=== PATIENT | female | born 1950 | race Caucasian/White ===

== ENCOUNTER → 2017-02-27 | Outpatient (CLI) | payer MEDICARE ==
--- NOTE | 2017-02-28 10:26 | MM ---
Reason for exam: screening (asymptomatic). Last mammogram was performed 2 years and 6 months ago. History: Patient is postmenopausal. Family history of breast cancer in cousin. Took estrogen for 4 years 4 months. Physical Findings: A clinical breast exam by your physician is recommended on an annual basis and results should be correlated with mammographic findings. MG 3D Screening Mammo W/Cad Bilateral CC, MLO, and XCCL view(s) were taken. Prior study comparison: September 08, 2014, bilateral MG screening mammo w CAD. November 21, 2011, bilateral digital screening mammo w/CAD. There is chronic nodularity bilaterally. No significant changes when compared with prior studies. ASSESSMENT: Benign, BI-RAD 2 RECOMMENDATION: Routine screening mammogram of both breasts in 1 year.
== END | disposition home or self-care (01) ==
LOC: RADMAMWWP 08:07
PROVIDERS: ATTEND Internal Medicine Geriatric Medicine
DX: Z12.31 Encounter for screening mammogram for malignant neoplasm of breast (principal)
CPT/HCPCS: 77063; G0202

== ENCOUNTER → 2018-05-01 | Outpatient (CLI) | payer MEDICARE ==
--- NOTE | 2018-05-01 15:51 | US ---
EXAMINATION TYPE: US venous doppler duplex LE RT DATE OF EXAM: 05/01/2018 12:21 PM COMPARISON: US CLINICAL HISTORY: Z96.651 Rt Artificial Knee joint. Pt states right total knee 6-18, having right l eg pain and swelling SIDE PERFORMED: Right TECHNIQUE: The lower extremity deep venous system is examined utilizing real time linear array sonog mindy with graded compression, doppler sonography and color-flow sonography. VESSELS IMAGED: External Iliac Vein (EIV) Common Femoral Vein Deep Femoral Vein Greater Saphenous Vein * Femoral Vein Popliteal Vein Small Saphenous Vein * Proximal Calf Veins (* superficial vessels) Right Leg: Negative for DVT IMPRESSION: 1. Right lower extremity ultrasound negative for deep venous thrombosis.
== END | disposition home or self-care (01) ==
LOC: RADUSWWP 12:17
PROVIDERS: ATTEND Orthopaedic Surgery Adult Reconstructive Orthopaedic Surgery
DX: M25.562 Pain in left knee (principal); M79.604 Pain in right leg; Z96.651 Presence of right artificial knee joint

== ENCOUNTER → 2019-05-19 | Outpatient (CLI) | payer MEDICARE ==
[2019-05-19 15:34] LABS: Basophils # (A) 0.1 k/uL (0-0.2); Basophils % (A) 1 %; Eosinophils # (A) 0.4 k/uL (0-0.7); Eosinophils % (A) 6 %; HCT 38.9 % (34.0-46.0); HGB 12.4 gm/dL (11.4-16.0); Lymphocytes # (A) 2.1 k/uL (1.0-4.8); Lymphocytes % (A) 27 %; MCH 26.7 pg (25.0-35.0); MCV 83.4 fL (80.0-100.0); Mean Platelet Volume 6.6; Monocytes # (A) 0.5 k/uL (0-1.0); Monocytes % (A) 6 %; Neutrophils # (A) 4.3 k/uL (1.3-7.7); Neutrophils % (A) 57 %; Platelet Count 264 k/uL (150-450); RBC 4.67 m/uL (3.80-5.40); WBC 7.6 k/uL (3.8-10.6)
[2019-05-19 18:20] LABS: Erythrocyte Sedimentation Rate 20 mm/hr (0-20)
== END | disposition home or self-care (01) ==
LOC: LABWHC1 14:48
PROVIDERS: ATTEND Physical Medicine & Rehabilitation
DX: M50.123 Cervical disc disorder at C6-C7 level with radiculopathy (principal); M47.812 Spondylosis without myelopathy or radiculopathy, cervical region; I10 Essential (primary) hypertension; M35.3 Polymyalgia rheumatica; E78.5 Hyperlipidemia, unspecified; M75.02 Adhesive capsulitis of left shoulder; M87.022 Idiopathic aseptic necrosis of left humerus
CPT/HCPCS: 36415; 85025; 85652; 86140

== ENCOUNTER → 2019-06-17 | Outpatient (CLI) | payer MEDICARE ==
--- NOTE | 2019-06-19 09:29 | MM ---
Reason for exam: screening (asymptomatic). Last mammogram was performed 2 years and 4 months ago. History: Patient is postmenopausal. Family history of breast cancer in cousin. Took estrogen for 4 years 4 months. Physical Findings: A clinical breast exam by your physician is recommended on an annual basis and results should be correlated with mammographic findings. MG 3D Screening Mammo W/Cad Bilateral CC, MLO, and XCCL view(s) were taken. Prior study comparison: February 27, 2017, bilateral MG 3d screening mammo w/cad. September 08, 2014, bilateral MG screening mammo w CAD. There are scattered fibroglandular densities. There is chronic nodularity bilaterally. No significant changes when compared with prior studies. ASSESSMENT: Negative, BI-RAD 1 RECOMMENDATION: Routine screening mammogram of both breasts in 1 year.
== END | disposition home or self-care (01) ==
LOC: RADMAMWWP 13:24
PROVIDERS: ATTEND Internal Medicine Geriatric Medicine
DX: Z12.31 Encounter for screening mammogram for malignant neoplasm of breast (principal)
CPT/HCPCS: 77063; 77067

== ENCOUNTER → 2019-07-03 | Outpatient (CLI) | payer MEDICARE ==
[2019-07-03 09:38] VITALS: BP 146/83; PULSE 73; RESP 16; TEMP 98.3; BMI 55.7
--- NOTE | 2019-07-03 10:00 | P.HPBAR ---
Bariatric H&P - History & Physicial H&P Date: 07/03/19 History & Physicial: Visit/CC: Initial Visit Patient initial contact: Initial weight: 151.953 kg Initial weight in pounds: 335.00 Height: 5 ft 5 in Initial BMI: 55.7 Last weight: Current weight: 152.095 kg Current weight in pounds: 335.31 Current BMI: 55.7 [place] body weight (based on NIH guidelines): 56.699 kg Excess body weight loss: The patient is a 68 year-old F who presents for Bariatric Assessment. HPI: She comes in at the request of her orthopedic doctor after requiring a reversal surgery on her left shoulder. 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 She gotten a second opinion from another orthopedic provider who had encouraged her for observation at this time. She reports being morbidly obese all her life. She is tonight out of 10 children. Everyone in her family is morbidly obese. She reports developing fibromyalgia. Separately she comes in with a history of a tumor behind the left eye of a meningioma. She does see several neurosurgeons at [facility] currently observing at this time. She reports needing cataract surgery. She reports some lower back pain on. 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 She reports hip pain particularly knee pain. She started he had a right knee replacement requires a left knee replacement. No reports of ankle or feet pain. She has baseline long-standing history of gastroesophageal reflux disease for she's been taken omeprazole indefinitely. Intermittent episodes of dysphagia. She denies any family history of esophageal or stomach cancer. Her father did have gastric ulcers as a child. Multiple family members are morbidly obese including a sister had an adjustable gastric band placement. She is looking into bariatric surgery particularly to need for orthopedic intervention. Separately, she reports moderate swelling of the bilat eral lower extremities. She takes Bumex on occasion. She's had at least 3 heart catheterizations for baseline history of angina. Last episode of angina in 10 years. She also reports angina Ronson the mother's side of her family. Last stress test was over 2-3 years ago. She reports inability of completion of both upper and lower endoscopy. She was reports that her bowels flip. She's had a hysterectomy including cholecystectomy. She does report bilateral lower abdominal pain. She presents for surgical options. Her daughter of uterine cancer. She reports right lower quadrant pain. She reports her bowels flip with bending. She had hysterectomy. MS: 2+ pitting edema. Heart regular rate and rhythm. 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 Neurologist 3. Shoulder evaluation 4. She has completed her psych and PCP letter 5. She is extremely high risk 6. Recommend esophogram 7. Will need a CT scan 8. She is due for lower scope and upper Past Medical History Past Medical History: GERD/Reflux, Hypertension, Seizure Disorder History of Any Multi-Drug Resistant Organisms: None Reported Past Psychological History: No Psychological Hx Reported Smoking Status: Never smoker Past Alcohol Use History: None Reported Past Drug Use History: None Reported Surgical - Exam Vital Signs Temp Pulse Resp BP 98.3 F 73 16 146/83 07/03/19 09:34 07/03/19 09:34 07/03/19 09:34 07/03/19 09:34 Bariatric Checklist Checklist: Plan: Checklist: EGD: 1. Hiatal hernia: 2. H. Pylori: HgbA1c: Vitamin D: Smoking: Never smoker Primary care physician referral: Vic[facility] Psychiatry clearance: Cardiology clearance: Sleep study: Diet journal: VTE risk score: VTE risk level: Rehab needs at discharge:
[2019-07-03 10:57] LABS: HCT 38.1 % (34.0-46.0); HGB 12.4 gm/dL (11.4-16.0); MCH 26.7 pg (25.0-35.0); MCHC 32.5 g/dL (31.0-37.0); Mean Platelet Volume 6.3; Platelet Count 270 k/uL (150-450); RBC 4.65 m/uL (3.80-5.40); RDW 13.9 % (11.5-15.5); WBC 7.3 k/uL (3.8-10.6)
[2019-07-03 11:09] LABS: Partial Thromboplastin Time 26.1 sec (22.0-30.0); Prothrombin Time 10.3 sec (9.0-12.0)
[2019-07-03 17:16] LABS: Phosphorus 3.6 mg/dL (2.4-5.1)
[2019-07-03 17:17] LABS: African American GFR (CKD) 87.2 (60.0-200.0); Albumin 4.2 g/dL (3.80-4.90); Albumin/Globulin Ratio 1.83 (1.60-3.17); Anion Gap 8.8 mmol/L (4.00-12.00); BUN/Creat Ratio 26.25 Ratio (12.00-20.00); Carbon Dioxide 30.2 mmol/L (21.6-31.8); Chol/HDL Ratio 3.29; Globulin 2.3 g/dL (1.6-3.3); LDL Cholesterol,Calculated 119.6 mg/dL (0.0-131.0); Magnesium 1.9 mg/dL (1.5-2.4); Potassium 4.1 mmol/L (3.5-5.5); Total Bilirubin 0.6 mg/dL (0.3-1.2); Total Protein 6.5 g/dL (6.2-8.2); VLDL Calculation 15.4 mg/dL (5.00-40.00)
[2019-07-03 17:23] LABS: Iron Saturation 12.17 (12.00-45.00)
[2019-07-03 17:31] LABS: Vitamin D 25 Hydroxy 27.8 ng/mL (30.0-100.0)
[2019-07-03 17:32] LABS: Ferritin 59.6 ng/mL (10.0-291.0)
[2019-07-03 17:34] LABS: Folate, Serum 12.7 ng/mL
[2019-07-03 20:18] LABS: Hemoglobin A1C 5.4 % (4.0-6.0)
[2019-07-04 13:54] LABS: Zinc, Serum 67 ug/dL (60-130)
[2019-07-05 08:15] LABS: Vit B1(Thiamine) 65 ug/L (38-122)
[2019-07-05 09:10] LABS: Vitamin A 31 ug/dL (38-106)
[2019-07-10 22:12] LABS: Selenium 94 mcg/L (63-160)
== END | disposition home or self-care (01) ==
LOC: BARWHC3 08:29
PROVIDERS: ATTEND Surgery Plastic and Reconstructive Surgery
DX: E66.01 Morbid (severe) obesity due to excess calories (principal); Z68.43 Body mass index [BMI] 50.0-59.9, adult; M79.7 Fibromyalgia; M54.5 Low back pain; K21.9 Gastro-esophageal reflux disease without esophagitis; M25.562 Pain in left knee; Z98.890 Other specified postprocedural states; I10 Essential (primary) hypertension; G40.909 Epilepsy, unspecified, not intractable, without status epilepticus
CPT/HCPCS: 84255; 84134; 84425; 80061; 80053; 82607; 82728; 82525; 82746; 83540; 83550; 83735; 84100; 84443; 84590; 84630; 85027; 85610; 85730; 82306; 83970; 83036; 93005; G0463; 99201

== ENCOUNTER → 2019-07-18 | Outpatient (CLI) | payer MEDICARE, OTHER ==
--- NOTE | 2019-07-18 09:57 | FL ---
EXAMINATION TYPE: FL barium swallow DATE OF EXAM: 07/18/2019 CLINICAL HISTORY: Gastroesophageal reflux and dysphagia. Preoperative examination. TECHNIQUE: A double contrast esophagram is performed utilizing air and barium. A total of 1.12 rian pilar of fluoroscopic time was utilized during procedure. 39 fluoroscopic images were saved during the examination. COMPARISON: None FINDINGS: The esophagus shows slightly abnormal motility with few inconsistent tertiary contractions or there is normal emptying into the stomach. Small hiatal hernia is seen with moderate grade intraes ophageal reflux and mild gastroesophageal reflux. No stricture is identified. Few tertiary contractio ns of the distal esophagus are inconsistent. No significant gastroesophageal reflux was seen during r eal time performance of this study. IMPRESSION: 1. Small hiatal hernia and moderate intraesophageal reflux with mild gastroesophageal reflux. 2. Inconsistent tertiary contractions, likely on the basis of early presbyesophagus.
== END | disposition home or self-care (01) ==
LOC: RADUSWWP 08:54
PROVIDERS: ATTEND Surgery Plastic and Reconstructive Surgery
DX: K44.9 Diaphragmatic hernia without obstruction or gangrene (principal); K21.9 Gastro-esophageal reflux disease without esophagitis; R13.10 Dysphagia, unspecified; Z88.2 Allergy status to sulfonamides
CPT/HCPCS: 74220

== ENCOUNTER → 2019-07-28 | Outpatient (CLI) | payer MEDICARE, OTHER ==
[2019-07-28 13:59] VITALS: BMI 57.3
== END ==
LOC: BARWHC3 08:44
PROVIDERS: ATTEND Surgery Plastic and Reconstructive Surgery
DX: E66.01 Morbid (severe) obesity due to excess calories (principal); Z68.43 Body mass index [BMI] 50.0-59.9, adult
CPT/HCPCS: 97804

== ENCOUNTER 2019-08-04 09:13 | Day surgery (SDC) | payer MEDICARE, OTHER ==
[2019-08-01 10:44] VITALS: BMI 53.2
--- NOTE | 2019-08-04 07:46 | P.GSHP ---
History of Present Illness H&P Date: 08/04/19 CHIEF COMPLAINT: GERD and colon screen HISTORY OF PRESENT ILLNESS: The patient is a 68-year-old female who presents with gastroesophageal reflux disease and need for colon screen. Upper and lower endoscopy were offered for further evaluation and management. PAST MEDICAL HISTORY: Please see list. PAST SURGICAL HISTORY: Please see list. MEDICATIONS: Please see list. ALLERGIES: Please see list. SOCIAL HISTORY: No illicit drug use FAMILY HISTORY: No reports of Crohn disease or ulcerative colitis. REVIEW OF ORGAN SYSTEMS: CONSTITUTIONAL: No reports of fevers or chills. GI: Denies any blood in stools or constipation. PHYSICAL EXAM: VITAL SIGNS: Stable GENERAL: Well-developed pleasant in no acute distress. HEENT: No scleral icterus. Extraocular movements grossly intact. Moist buccal mucosa. NECK: Supple without lymphadenopathy. CHEST: Unlabored respirations. Equal bilateral excursions. CARDIOVASCULAR: Regular rate and rhythm. Distal 2+ pulses. ABDOMEN: Soft, nondistended. MUSCULOSKELETAL: No clubbing, cyanosis, or edema. ASSESSMENT: 1. Gastroesophageal reflux disease 2. Colon screen. PLAN: 1. Recommend proceeding with an upper and lower endoscopy Past Medical History Past Medical History: GERD/Reflux, Hypertension, Osteoarthritis (OA), Seizure Disorder, Sleep Apnea/CPAP/BIPAP, Thyroid Disorder Additional Past Medical History / Comment(s): LAST SEIZURE 2013, NEOPLASM OF MENANGIOMA, SLEEP APNEA (UNABLE TO USE MACHINE)., POLYMYALGIA RHEUMATICA, BACK PAIN, LEFT SHOULDER PAIN, LOW IRON, INCONTINENT- WEARS PADS. History of Any Multi-Drug Resistant Organisms: None Reported Past Surgical History: Back Surgery, Cholecystectomy, Heart Catheterization, Hysterectomy, Joint Replacement Additional Past Surgical History / Comment(s): MULTIPLE D & C'S , TOTAL RIGHT KNEE, HEMORRHOIDS, LAMINECTOMY X2, HEART CATH X3. Past Anesthesia/Blood Transfusion Reactions: Previous Problems w/ Anesthesia Additional Past Anesthesia/Blood Transfusion Reaction / Comment(s): REACTION TO STADOL Past Psychological History: No Psychological Hx Reported Smoking Status: Never smoker Past Alcohol Use History: None Reported Past Drug Use History: None Reported - Past Family History Mother Family Medical History: No Reported History Medications and Allergies Home Medications Medication Instructions Recorded Confirmed Type Aspirin 81 mg PO DAILY 03/21/15 08/01/19 History levETIRAcetam [Keppra] 750 mg PO BID 03/21/15 08/01/19 History Levothyroxine Sodium 0.1 mg PO DAILY 07/30/19 08/01/19 History Omeprazole 20 mg PO DAILY 07/30/19 08/01/19 History Piroxicam 20 mg PO DAILY 07/30/19 08/01/19 History rOPINIRole HCL [Requip] 0.5 mg PO BID 07/30/19 08/01/19 History Acetaminophen [Tylenol Extra 500 mg PO DIRECTED PRN 08/01/19 08/01/19 History Strength] Bumetanide [BUMEX] 1 mg PO DAILY PRN 08/01/19 08/01/19 History Bumetanide [BUMEX] 2 mg PO DAILY 08/01/19 08/01/19 History Diazepam [Valium] 5 mg PO ONCE 08/01/19 08/01/19 History Potassium 99 mg PO DAILY 08/01/19 08/01/19 History amLODIPine BESYLATE/BENAZEPRIL 1 each PO DAILY 08/01/19 08/01/19 History [amLODIPine BESYLATE/BENAZEPRIL 5-10 MG] Allergies Allergy/AdvReac Type Severity Reaction Status Date / Time Sulfa (Sulfonamide Allergy Unknown Swelling, Verified 08/01/19 09:31 Antibiotics) REDNESS butorphanol [From Stadol] AdvReac Severe Hallucinati Verified 08/01/19 09:31 ons
[~2019-08-04 09:13] MED LIST: LACTATED RINGERS 1,000 ML IV SCH
[2019-08-04 09:46] VITALS: TEMP 97
[2019-08-04] MEDS ORDERED: LIDOCAINE 1% 20 ML VIAL (10MG/ML) FOR IV START INTRADERMA ONE (09:52)
[2019-08-04] MEDS ORDERED: LIDOCAINE 1% INJ 10MG/ML (20 ML MDV) ONE (09:58)
[2019-08-04] MEDS ORDERED: PROPOFOL 10 MG/ML 20 ML VIAL IV ONE (09:58)
--- NOTE | 2019-08-04 10:25 | P.PCN ---
Date of Procedure: 08/04/19 Description of Procedure: PREOPERATIVE DIAGNOSIS: Gastroesophageal reflux disease. Morbid obesity. POSTOPERATIVE DIAGNOSIS: Morbid obesity. Gastritis. Gastroesophageal reflux disease. Diaphragmatic hiatal hernia OPERATION: Esophagogastroduodenoscopy with biopsies along antrum. SURGEON: Esme Hermosillo MD ANESTHESIA: MAC. INDICATIONS: The patient is a 68-year-old female who presents with a history of reflux disease. Benefits and risks of the procedure were described. Informed consent was obtained. DESCRIPTION: The patient was brought into the endoscopy suite and laid in the left lateral decubitus position. An Olympus gastroscope was passed along the posterior oropharynx down to the distal esophagus where the squamocolumnar junction was encountered at 37 cm from the incisors. The stomach was entered and no bile reflux was found. Additional findings are listed below. Biopsies with cold f orceps were obtained of the antrum. The first through third portion of the duodenum was examined and unremarkable. Retroflexion of the scope confirmed Hill grade 2 lower esophageal valve. The squamocolumnar junction demonstrated LA grade A erosive esophagitis. The stomach was desufflated. The patient tolerated the procedure well. FINDINGS: Squamocolumnar junction 37 cm from the incisors. Diaphragmatic hiatus at 38 cm. Hiatal hernia, 1 cm Hill grade 2 lower esophageal valve. LA grade A erosive esophagitis. No active duodenitis. Chronic gastritis RECOMMENDATIONS: Upper endoscopy as needed.
--- NOTE | 2019-08-04 10:29 | P.PCN ---
Date of Procedure: 08/04/19 Description of Procedure: PREOPERATIVE DIAGNOSIS: Colonoscopy screening. POSTOPERATIVE DIAGNOSIS: Colonoscopy screening. Diverticulosis, scattered. OPERATION: Colonoscopy to the ascending colon SURGEON: Esme Hermosillo MD. ANESTHESIA: MAC. INDICATIONS: The patient is a 68-year-old female who presents for colonoscopy screening. Benefits and risks were described and informed consent was obtained. DESCRIPTION OF PROCEDURE: The patient had undergone Suprep. She had been brought into the operating room and laid in the left lateral decubitus position. After adequate intravenous sedation, the rectum was examined with 2% lidocaine jelly. External hemorrhoids were encountered. The rectal tone was within normal limits. No lesions were palpated in the rectal vault. An adult Olympus colonoscope was exchanged for a pediatric colonoscope. The scope was advanced to the ascending colon with complete insertion of the scope. The prep was excellent with clear visualization of the mucosal folds. The scope was removed with visualization of each mucosal fold. Scattered diverticulosis was encountered. No colonic polyps were found. No evidence of focal colitis was found. Retroflexion of the scope demonstrated grade 1 internal hemorrhoids without active bleeding or inflammation. The colon was desufflated. The patient had tolerated the procedure well. Withdrawal time was over 6 minutes. FINDINGS: Aronchick preparation quality scale 1 (1-5) Internal hemorrhoids, grade 1 External prolapsed hemorrhoids, grade 1 No arteriovenous malformations. No adenomatous polyps. No focal colitis. RECOMMENDATIONS: Recommend Cologaurd Repeat colonoscopy in 3 years, 2021 Plan - Discharge Summary New Discharge Prescriptions: No Action Aspirin 81 mg PO DAILY levETIRAcetam [Keppra] 750 mg PO BID Piroxicam 20 mg PO DAILY Levothyroxine Sodium 0.1 mg PO DAILY rOPINIRole HCL [Requip] 0.5 mg PO BID Omeprazole 20 mg PO DAILY Bumetanide [BUMEX] 1 mg PO DAILY PRN PRN Reason: Shortness Of Breath Diazepam [Valium] 5 mg PO ONCE Bumetanide [BUMEX] 2 mg PO DAILY amLODIPine BESYLATE/BENAZEPRIL [amLODIPine BESYLATE/BENAZEPRIL 5-10 MG] 1 each PO DAILY Potassium 99 mg PO DAILY Acetaminophen [Tylenol Extra Strength] 500 mg PO DIRECTED PRN PRN Reason: Pain Discharge Medication List Aspirin 81 mg PO DAILY 03/21/15 [History] levETIRAcetam [Keppra] 750 mg PO BID 03/21/15 [History] Levothyroxine Sodium 0.1 mg PO DAILY 07/30/19 [History] Omeprazole 20 mg PO DAILY 07/30/19 [History] Piroxicam 20 mg PO DAILY 07/30/19 [History] rOPINIRole HCL [Requip] 0.5 mg PO BID 07/30/19 [History] Acetaminophen [Tylenol Extra Strength] 500 mg PO DIRECTED PRN 08/01/19 [History] Bumetanide [BUMEX] 1 mg PO DAILY PRN 08/01/19 [History] Bumetanide [BUMEX] 2 mg PO DAILY 08/01/19 [History] Diazepam [Valium] 5 mg PO ONCE 08/01/19 [History] Potassium 99 mg PO DAILY 08/01/19 [History] amLODIPine BESYLATE/BENAZEPRIL [amLODIPine BESYLATE/BENAZEPRIL 5-10 MG] 1 each PO DAILY 08/01/19 [History] [facility] [place] [place] [facility] [place] [facility]19 Patient Instructions/Handouts: Hiatal Hernia (GEN), Diverticulosis (DC), Diverticulosis Diet (GEN) Discharge Disposition: HOME SELF-CARE
[2019-08-04 10:49] VITALS: BP 138/83; PULSE 77; RESP 16
== END 2019-08-04 11:12 | disposition home or self-care (01) ==
LOC: ORWHC2ENDO 09:13
PROVIDERS: ATTEND Surgery Plastic and Reconstructive Surgery
DX: Z12.11 Encounter for screening for malignant neoplasm of colon (principal); K29.50 Unspecified chronic gastritis without bleeding; K44.9 Diaphragmatic hernia without obstruction or gangrene; K22.10 Ulcer of esophagus without bleeding; K57.90 Diverticulosis of intestine, part unspecified, without perforation or abscess without bleeding; K21.9 Gastro-esophageal reflux disease without esophagitis; K64.0 First degree hemorrhoids; E66.01 Morbid (severe) obesity due to excess calories; Z68.43 Body mass index [BMI] 50.0-59.9, adult; I10 Essential (primary) hypertension; M19.90 Unspecified osteoarthritis, unspecified site; F41.9 Anxiety disorder, unspecified; G40.909 Epilepsy, unspecified, not intractable, without status epilepticus; G47.30 Sleep apnea, unspecified; E07.9 Disorder of thyroid, unspecified; D32.9 Benign neoplasm of meninges, unspecified; M35.3 Polymyalgia rheumatica; R32 Unspecified urinary incontinence; Z90.49 Acquired absence of other specified parts of digestive tract; Z90.710 Acquired absence of both cervix and uterus; Z79.82 Long term (current) use of aspirin; Z79.890 Hormone replacement therapy; Z79.1 Long term (current) use of non-steroidal anti-inflammatories (NSAID); Z79.899 Other long term (current) drug therapy; Z88.5 Allergy status to narcotic agent; Z88.2 Allergy status to sulfonamides; Z88.6 Allergy status to analgesic agent
CPT/HCPCS: 43239; 88305; G0121; J2001; J2704; 45378

== ENCOUNTER → 2019-08-20 | Outpatient (CLI) | payer MEDICARE, OTHER ==
[2019-08-20 14:40] VITALS: BP 147/66; PULSE 84; RESP 16; TEMP 98; BMI 55.4
--- NOTE | 2019-08-20 15:52 | P.PN ---
Subjective Progress Note Date: 08/20/19 DATE OF SERVICE: 08/20/2019 CHIEF COMPLAINT: Morbid obesity HISTORY OF PRESENT ILLNESS: Natali Desai is a 68-year-old female who comes with lifelong morbid obesity. She has multiple medical problems including hypertensive heart disease, osteoarthritis of the knee, hips and shoulder, and sleep apnea. She has complicated neurologic history including teratoma of the spine and meningioma of the brain. She reports she needs gamma probe for the brain. She has BMI over 55 where she cannot fit into the MRI machine. She has severe gastro-esophageal reflux. She completed upper and lower endoscopy. She comes in with new neurological problems and severe reflux. At height of 5 feet 5 inches, her ideal body weight is 149 pounds. She comes in 332 pounds from 335 pounds, 1 month ago. She has lost 2 pounds. Her body mass index is down from 55.8 to 55.4. She is 183 pounds overweight. PAST MEDICAL HISTORY: 1. Morbid obesity due to excess calories 2. Body mass index of 55.8, initial 3. Osteoarthritis and osteonecrosis, left shoulder 4. Fibromyalgia 5. Meningioma, left eye 6. Cataract of both eyes 7. Osteoarthritis of the lower back 8. Teratoma of the spine 9. Osteoarthritis of the hips 10. Osteoarthritis of the knees 11. Gastroesophageal reflux disease 12. Dysphagia 13. Angina 14. Hypertensive heart disease. 15. Obstructive sleep apnea PAST SURGICAL HISTORY: 1. EGD 2. Colonoscopy incomplete 3. Hysterectomy 4. Right knee replacement 5. Cholecystectomy HOME MEDICATIONS: Home Medications Medication Instructions Recorded Confirmed Aspirin 81 mg PO DAILY 03/21/15 08/20/19 levETIRAcetam [Keppra] 750 mg PO BID 03/21/15 08/20/19 Levothyroxine Sodium 0.1 mg PO DAILY 07/30/19 08/20/19 Omeprazole 20 mg PO DAILY 07/30/19 08/20/19 Piroxicam 20 mg PO DAILY 07/30/19 08/20/19 rOPINIRole HCL [Requip] 0.5 mg PO BID 07/30/19 08/20/19 Acetaminophen [Tylenol Extra 500 mg PO DIRECTED PRN 08/01/19 08/20/19 Strength] Bumetanide [BUMEX] 1 mg PO DAILY PRN 08/01/19 08/20/19 Bumetanide [BUMEX] 2 mg PO DAILY 08/01/19 08/20/19 Diazepam [Valium] 5 mg PO ONCE 08/01/19 08/20/19 Potassium 99 mg PO DAILY 08/01/19 08/20/19 amLODIPine BESYLATE/BENAZEPRIL 1 each PO DAILY 08/01/19 08/20/19 [amLODIPine BESYLATE/BENAZEPRIL 5-10 MG] ALLERGIES: Allergies Allergy/AdvReac Type Severity Reaction Status Date / Time Sulfa (Sulfonamide Allergy Unknown Swelling, Verified 08/20/19 14:53 Antibiotics) REDNESS butorphanol [From Stadol] AdvReac Severe Hallucinati Verified 08/20/19 14:53 ons tramadol AdvReac Unknown Verified 08/20/19 14:53 SOCIAL HISTORY: No recent tobacco use. FAMILY HISTORY: No family history of ulcerative colitis disease or Crohn's disease. Family history of morbid obesity. No lupus in the family. No reports of stomach or esophageal cancer. Her father did have gastric ulcers as a child. Her daughter of uterine cancer. REVIEW OF ORGAN SYSTEMS: CONSTITUTIONAL: At height of 5 feet 5 inches, her ideal body weight is 149 pounds. She was 335 pounds. Her body mass index was 55.8. She was 186 pounds overweight. HEENT: Denies any active troubles with hearing. Wears glasses. Has troubles with swallowing. ENDOCRINE: No diabetes. Has hypothyroidism. CARDIOVASCULAR: Past reports of palpitations, heart attacks, chest pain. Has hypertension. RESPIRATORY: Has daytime somnolence. No asthma. GASTROINTESTINAL: Denies any bright red blood per rectum. Has change in bowel habits. Has gastroesophageal reflux disease. MUSCULOSKELETAL: Has lower back pain and joint pain. Has osteoarthritis of the knees. History of bilateral lower extremity edema. Has severe shoulder arthritis. NEURO: No headaches. Has seizure disorders including tumors of the brain. PSYCH: Has depression. No suicidal ideation. Has anxiety. RHEUMATOLOGIC: No lupus. No rheumatoid arthritis. HEMATOLOGIC: Denies any abnormal bleeding or bruising. No personal history of DVTs. SKIN: No rash. No skin cancer. PHYSICAL EXAM: VITAL SIGNS: Height 5 foot 5 inches, weight 332 pounds. BMI 55.4 Vital Signs Temp 98 F 08/20/19 14:37 Pulse 84 08/20/19 14:37 Resp 16 08/20/19 14:37 BP 147/66 08/20/19 14:37 Pulse Ox GENERAL: Well-developed in no acute distress. HEENT: No scleral icterus. Extraocular movements grossly intact. Hears conversational speech. No nasal drainage. NECK: Supple without lymphadenopathy. CHEST: Nonlabored respirations with equal bilateral excursions. CARDIOVASCULAR: Regular rate and regular rhythm. Distal 2+ pulses. ABDOMEN: Obese, soft, nontender, nondistended. MUSCULOSKELETAL: No clubbing, cyanosis. Gross strength 5/5 distal lower extremities. NEURO: No focal or lateralizing signs. Cranial nerves 2 through 12 grossly within normal limits. PSYCH: Appropriate affect. Alert and oriented to person, place and time. SKIN: Good skin turgor. Well perfused. LABS: Iron is low Pre-albumin is low Vitamin A is low Vitamin D is low PTH is elevated STUDIES: Esophagram demonstrated intra-esophageal reflux disease and esophageal dysmotility EGD FINDINGS: Squamocolumnar junction 37 cm from the incisors. Diaphragmatic hiatus at 38 cm. Hiatal hernia, 1 cm Hill grade 2 lower esophageal valve. LA grade A erosive esophagitis. No active duodenitis. Chronic gastritis COLONOSCOPY: Scattered diverticulosis to the ascending colon. Final Pathologic Diagnosis GASTRIC ANTRUM, BIOPSY: Chronic gastritis. Helicobacter organisms are not identified on routine H+E stained sections. ASSESSMENT: 1. Morbid obesity due to excess calories 2. Body mass index of 55.8, initial 3. Osteoarthritis and osteonecrosis, left shoulder 4. Fibromyalgia 5. Meningioma, left eye 6. Cataract of both eyes 7. Osteoarthritis of the lower back 8. Teratoma of the spine 9. Osteoarthritis of the hips 10. Osteoarthritis of the knees 11. Gastroesophageal reflux disease 12. Dysphagia 13. Angina 14. Hypertensive heart disease. 15. Obstructive sleep apnea 16. Vitamin A deficiency 17. Vitamin D deficiency 18. Secondary hyperparathyroidism 19. Iron deficiency anemia 20. Hiatal hernia PLAN: 1. All findings shows severe reflux disease including underlying bowel anomaly, recommend CT of the abdomen and pelvis as also reports lower abdominal pain. 2. For her reflux, bypass may be favored; however additional studies are pending. 3. She is pending additional assessment from her neurosurgeon as she may need more urgent surgical intervention. 4. Will need iron supplement 5. Vitamin D supplement advised. Thank you for this consultation. Objective - Vital Signs Vital signs: Vital Signs Temp 98 F 08/20/19 14:37 Pulse 84 08/20/19 14:37 Resp 16 08/20/19 14:37 BP 147/66 08/20/19 14:37 Pulse Ox Intake & Output 08/19/19 08/20/19 08/20/19 18:59 06:59 18:59 Weight 151.103 kg
== END | disposition home or self-care (01) ==
LOC: BARWHC3 13:56
PROVIDERS: ATTEND Surgery Plastic and Reconstructive Surgery
DX: E66.01 Morbid (severe) obesity due to excess calories (principal); D48.0 Neoplasm of uncertain behavior of bone and articular cartilage; D32.0 Benign neoplasm of cerebral meninges; G47.33 Obstructive sleep apnea (adult) (pediatric); I11.9 Hypertensive heart disease without heart failure; I20.9 Angina pectoris, unspecified; K21.9 Gastro-esophageal reflux disease without esophagitis; M19.012 Primary osteoarthritis, left shoulder; M87.9 Osteonecrosis, unspecified; M79.7 Fibromyalgia; M16.0 Bilateral primary osteoarthritis of hip; M17.0 Bilateral primary osteoarthritis of knee; R13.10 Dysphagia, unspecified; H26.9 Unspecified cataract; E55.9 Vitamin D deficiency, unspecified; D50.9 Iron deficiency anemia, unspecified; K44.9 Diaphragmatic hernia without obstruction or gangrene; N25.81 Secondary hyperparathyroidism of renal origin; Z79.82 Long term (current) use of aspirin; Z79.891 Long term (current) use of opiate analgesic; Z79.899 Other long term (current) drug therapy; Z79.890 Hormone replacement therapy; Z68.53 Body mass index [BMI] pediatric, 85th percentile to less than 95th percentile for age; Z88.2 Allergy status to sulfonamides; Z88.5 Allergy status to narcotic agent
CPT/HCPCS: 99211

== ENCOUNTER → 2019-08-26 | Outpatient (CLI) | payer MEDICARE, OTHER ==
--- NOTE | 2019-08-26 10:43 | CT ---
EXAMINATION TYPE: CT abdomen pelvis w con DATE OF EXAM: 08/26/2019 COMPARISON: None HISTORY: pre op bariatric surgery, diverticulitis, hiatal hernia CT DLP: 3803.3 mGycm CONTRAST: CT scan of the abdomen and pelvis is performed with Oral Contrast and with IV Contrast, patient injec shaniqua with 100 mL of Isovue 300. FINDINGS: LUNG BASES-: No visible nodule. No infiltrate. LIVER/GB: No calcified gallstones. No space occupying hepatic lesion. Biliary tree is of normal ca liber. PANCREAS: No inflammation. No distinct mass. SPLEEN: No splenic enlargement. No lesion seen. ADRENALS: No nodule. No thickening. KIDNEYS/BLADDER: No hydronephrosis. No nephrolithiasis. No distinct renal mass. Urinary bladder g rossly unremarkable. BOWEL: Normal appendix. Normal bowel caliber. No inflammation. GENITAL ORGANS: No gross abnormality. LYMPH NODES: No greater than 1cm abdominal or pelvic lymph nodes are appreciated. AORTA: No significant abnormality. OSSEOUS STRUCTURES: Severe degenerative changes lumbar spine. OTHER: No significant additional abnor mality is seen. IMPRESSION: 1. No acute process identified at this time.
== END | disposition home or self-care (01) ==
LOC: RADCTMAIN 07:54
PROVIDERS: ATTEND Surgery Plastic and Reconstructive Surgery
DX: K57.32 Diverticulitis of large intestine without perforation or abscess without bleeding (principal)
CPT/HCPCS: 82565; 84520; 74177; 36415; Q9967 ×2

== ENCOUNTER → 2019-09-10 | Outpatient (CLI) | payer MEDICARE, OTHER ==
[2019-09-10 14:23] VITALS: BP 132/77; PULSE 73; TEMP 97.9; BMI 54.2
--- NOTE | 2019-09-10 14:26 | P.PN ---
Subjective Progress Note Date: 09/10/19 DATE OF SERVICE: 09/10/2019 CHIEF COMPLAINT: Morbid obesity HISTORY OF PRESENT ILLNESS: Natali Desai is a 68-year-old female who comes with lifelong morbid obesity. She comes in with multiple co-morbidities including obstructive sleep apnea, hypertensive heart disease, osteoarthritis of the hips and knees. She comes in for weight loss surgery options. She reports past history of bowel obstructions. She has a brain mass. I personally spoke to her neurologist/surgeon/oncologist for treatment. She is here for evaluation. She goes to [facility] as well. She reports gastroesophageal reflux that is controlled with medications. She has seizures and is on medications. She spends half her time in [place]. At height of 5 feet 5 inches, her ideal body weight is 149 pounds. She comes in 325 pounds from 332 pounds, 1 month ago. She has lost 7 pounds in 1 month. Her highest weight is 335 pounds. Her body mass index is down from 55.8 to 54.2. She is 176 pounds overweight. PAST MEDICAL HISTORY: 1. Morbid obesity due to excess calories 2. Body mass index of 55.8, initial 3. Osteoarthritis and osteonecrosis, left shoulder 4. Fibromyalgia 5. Meningioma, left eye 6. Cataract of both eyes 7. Osteoarthritis of the lower back 8. Teratoma of the spine 9. Osteoarthritis of the hips 10. Osteoarthritis of the knees 11. Gastroesophageal reflux disease 12. Dysphagia 13. Angina 14. Hypertensive heart disease. 15. Obstructive sleep apnea 16. Bowel obstructions PAST SURGICAL HISTORY: 1. EGD 2. Colonoscopy incomplete 3. Hysterectomy 4. Right knee replacement 5. Cholecystectomy HOME MEDICATIONS: Home Medications Medication Instructions Recorded Confirmed Aspirin 81 mg PO DAILY 03/21/15 08/20/19 levETIRAcetam [Keppra] 750 mg PO BID 03/21/15 08/20/19 Levothyroxine Sodium 0.1 mg PO DAILY 07/30/19 08/20/19 Omeprazole 20 mg PO DAILY 07/30/19 08/20/19 Piroxicam 20 mg PO DAILY 07/30/19 08/20/19 rOPINIRole HCL [Requip] 0.5 mg PO BID 07/30/19 08/20/19 Acetaminophen [Tylenol Extra 500 mg PO DIRECTED PRN 08/01/19 08/20/19 Strength] Bumetanide [BUMEX] 1 mg PO DAILY PRN 08/01/19 08/20/19 Bumetanide [BUMEX] 2 mg PO DAILY 08/01/19 08/20/19 Diazepam [Valium] 5 mg PO ONCE 08/01/19 08/20/19 Potassium 99 mg PO DAILY 08/01/19 08/20/19 amLODIPine BESYLATE/BENAZEPRIL 1 each PO DAILY 08/01/19 08/20/19 [amLODIPine BESYLATE/BENAZEPRIL 5-10 MG] ALLERGIES: Allergies Allergy/AdvReac Type Severity Reaction Status Date / Time Sulfa (Sulfonamide Allergy Unknown Swelling, Verified 08/20/19 14:53 Antibiotics) REDNESS butorphanol [From Stadol] AdvReac Severe Hallucinati Verified 08/20/19 14:53 ons tramadol AdvReac Unknown Verified 08/20/19 14:53 SOCIAL HISTORY: No recent tobacco use. FAMILY HISTORY: No family history of ulcerative colitis disease or Crohn's disease. Family history of morbid obesity. No lupus in the family. No reports of stomach or esophageal cancer. Her father did have gastric ulcers as a child. Her daughter of uterine cancer. REVIEW OF ORGAN SYSTEMS: CONSTITUTIONAL: At height of 5 feet 5 inches, her ideal body weight is 149 pounds. She was 335 pounds. Her body mass index was 55.8. She was 186 pounds overweight. HEENT: Denies any active troubles with hearing. Wears glasses. Has troubles with swallowing. ENDOCRINE: No diabetes. Has hypothyroidism. CARDIOVASCULAR: Past reports of palpitations, heart attacks, chest pain. Has hypertension. RESPIRATORY: Has daytime somnolence. No asthma. GASTROINTESTINAL: Denies any bright red blood per rectum. Has change in bowel habits. Has gastroesophageal reflux disease. MUSCULOSKELETAL: Has lower back pain and joint pain. Has osteoarthritis of the knees. History of bilateral lower extremity edema. Has severe shoulder arthritis. NEURO: No headaches. Has seizure disorders including tumors of the brain. PSYCH: Has depression. No suicidal ideation. Has anxiety. RHEUMATOLOGIC: No lupus. No rheumatoid arthritis. HEMATOLOGIC: Denies any abnormal bleeding or bruising. No personal history of DVTs. SKIN: No rash. No skin cancer. PHYSICAL EXAM: VITAL SIGNS: Height 5 foot 5 inches, weight 325 pounds. BMI 54.2 Vital Signs Temp 97.9 F 09/10/19 14:10 Pulse 73 09/10/19 14:10 Resp BP 132/77 09/10/19 14:10 Pulse Ox GENERAL: Well-developed in no acute distress. HEENT: No scleral icterus. Extraocular movements grossly intact. Hears conversational speech. No nasal drainage. NECK: Supple without lymphadenopathy. CHEST: Nonlabored respirations with equal bilateral excursions. CARDIOVASCULAR: Regular rate and regular rhythm. Distal 2+ pulses. ABDOMEN: Obese, soft, nontender, nondistended. MUSCULOSKELETAL: No clubbing, cyanosis. Gross strength 5/5 distal lower extremities. NEURO: No focal or lateralizing signs. Cranial nerves 2 through 12 grossly within normal limits. PSYCH: Appropriate affect. Alert and oriented to person, place and time. SKIN: Good skin turgor. Well perfused. ASSESSMENT: 1. Morbid obesity due to excess calories 2. Body mass index of 55.8, initial 3. Osteoarthritis and osteonecrosis, left shoulder 4. Fibromyalgia 5. Meningioma, left eye 6. Cataract of both eyes 7. Osteoarthritis of the lower back 8. Teratoma of the spine 9. Osteoarthritis of the hips 10. Osteoarthritis of the knees 11. Gastroesophageal reflux disease 12. Dysphagia 13. Angina 14. Hypertensive heart disease. 15. Obstructive sleep apnea 16. Vitamin A deficiency 17. Vitamin D deficiency 18. Secondary hyperparathyroidism 19. Iron deficiency anemia 20. Hiatal hernia PLAN: 1. Bariatric options between a sleeve, band and a Krissy-en-Y gastric bypass were reviewed in detail. Recommend sleeve gastrectomy for prior history of small bowel obstructions. Robotic assisted approach described. 2. The [place] [facility] Data was also reviewed with benefits and risks as described. 3. An 8 page second-generation bariatric consent form was reviewed in detail including potential of bleeding, infection, leaks, adequate weight loss, nutritional deficiencies which the patient demonstrated understanding of the risks. 4. A 2 week high-protein low caloric 800 kcal diet described to address hepatomegaly. 5. Preoperative labs including complete metabolic panel and CBC with type and screen recommended. 6. DVT prophylaxis per [place] [facility]. 7. Antibiotic prophylaxis. 8. Inpatient hospitalization anticipated for more than 2 nights. 9. All questions and concerns were addressed with the patient. 10. She is very high risk for surgical complications secondary to history of bowel obstructions, supermorbid obesity, including brain tumor. Objective - Vital Signs Vital signs: Vital Signs Temp 97.9 F 09/10/19 14:10 Pulse 73 09/10/19 14:10 Resp BP 132/77 09/10/19 14:10 Pulse Ox Intake & Output 09/09/19 09/10/19 09/10/19 18:59 06:59 18:59 Weight 147.871 kg
== END | disposition home or self-care (01) ==
LOC: BARWHC3 11:59
PROVIDERS: ATTEND Surgery Plastic and Reconstructive Surgery
DX: E66.01 Morbid (severe) obesity due to excess calories (principal); Z68.43 Body mass index [BMI] 50.0-59.9, adult; M19.012 Primary osteoarthritis, left shoulder; M87.812 Other osteonecrosis, left shoulder; M79.7 Fibromyalgia; D32.9 Benign neoplasm of meninges, unspecified; M47.816 Spondylosis without myelopathy or radiculopathy, lumbar region; D48.0 Neoplasm of uncertain behavior of bone and articular cartilage; M16.9 Osteoarthritis of hip, unspecified; M17.0 Bilateral primary osteoarthritis of knee; K21.9 Gastro-esophageal reflux disease without esophagitis; R13.10 Dysphagia, unspecified; I20.9 Angina pectoris, unspecified; I11.9 Hypertensive heart disease without heart failure; G47.33 Obstructive sleep apnea (adult) (pediatric); E50.9 Vitamin A deficiency, unspecified; E55.9 Vitamin D deficiency, unspecified; N25.81 Secondary hyperparathyroidism of renal origin; D50.9 Iron deficiency anemia, unspecified; K44.9 Diaphragmatic hernia without obstruction or gangrene; H26.8 Other specified cataract; Z90.49 Acquired absence of other specified parts of digestive tract; Z90.710 Acquired absence of both cervix and uterus; Z79.899 Other long term (current) drug therapy; Z79.891 Long term (current) use of opiate analgesic; Z79.82 Long term (current) use of aspirin; Z88.2 Allergy status to sulfonamides; Z88.6 Allergy status to analgesic agent
CPT/HCPCS: 99211

== ENCOUNTER → 2019-09-30 | Outpatient (CLI) | payer MEDICARE, OTHER | END | disposition home or self-care (01) | LOC: LABWHC1 09:50 | PROVIDERS: ATTEND Nurse Practitioner Family | DX: R56.9 Unspecified convulsions (principal) | CPT/HCPCS: 36415; 80177 ==

== ENCOUNTER → 2019-09-30 | Outpatient (CLI) | payer MEDICARE, OTHER ==
[2019-09-30 10:23] LABS: Basophils # (A) 0.1 k/uL (0-0.2); Basophils % (A) 1 %; Eosinophils # (A) 0.2 k/uL (0-0.7); Eosinophils % (A) 3 %; HCT 42.6 % (34.0-46.0); HGB 14.1 gm/dL (11.4-16.0); Lymphocytes # (A) 1.3 k/uL (1.0-4.8); Lymphocytes % (A) 17 %; MCH 27.1 pg (25.0-35.0); Monocytes # (A) 0.5 k/uL (0-1.0); Monocytes % (A) 6 %; Neutrophils # (A) 5.2 k/uL (1.3-7.7); Neutrophils % (A) 69 %; Platelet Count 275 k/uL (150-450); WBC 7.6 k/uL (3.8-10.6)
[2019-09-30 10:47] LABS: Albumin 4.6 g/dL (3.5-5.0); Calcium 9.7 mg/dL (8.4-10.2); Potassium 3.4 mmol/L (3.5-5.1); Total Bilirubin 0.9 mg/dL (0.2-1.3)
== END | disposition home or self-care (01) ==
LOC: LABPAT 09:52
PROVIDERS: ATTEND Surgery Plastic and Reconstructive Surgery
DX: Z01.812 Encounter for preprocedural laboratory examination (principal)
CPT/HCPCS: 80053; 85025

== ENCOUNTER 2019-10-06 06:50 | Inpatient (IN) | payer MEDICARE, OTHER ==
--- NOTE | 2019-10-05 22:48 | P.GSHP ---
History of Present Illness H&P Date: 10/06/19 DATE OF SERVICE: 10/06/2019 CHIEF COMPLAINT: Morbid obesity. HISTORY OF PRESENT ILLNESS: Natali Desai is a 68-year-old female who comes with lifelong morbid obesity. She comes in at the request of her orthopedic doctor after requiring a reversal surgery on her left shoulder. She has history of osteonecrosis of her left shoulder. She got a second opinion from another orthopedic provider who had encouraged her for observation at this time. She reports being morbidly obese all her life. She is 9 out of 10 children. Everyone in her family is morbidly obese. She reports developing fibromyalgia. Separately she comes in with a history of a tumor behind the left eye of a meningioma. She does see several neurosurgeons at [facility] who is currently observing her tumor at this time. She reports needing cataract surgery. She reports lower back pain. She has a teratoma of the spine. She reports hip pain particularly knee pain. She had a right knee replacement and requires a left knee replacement. No reports of ankle or feet pain. She has baseline long- standing history of gastroesophageal reflux disease and has been taking omeprazole indefinitely. She has intermittent episodes of dysphagia. She denies any family history of esophageal or stomach cancer. Her father did have gastric ulcers as a child. She has multiple family members who are morbidly obese including a sister who had an adjustable gastric band placement. She is looking into bariatric surgery particularly for orthopedic intervention. Separately, she reports moderate swelling of the bilateral lower extremities. She takes Bumex on occasion. She's had at least 3 heart catheterizations for baseline history of angina. Last episode of angina is 10 years ago. She also reports angina runs along her mother's side of her family. Last stress test was over 2-3 years ago. She reports inability of completion of both upper and lower endoscopy. She reports that her bowels flip. She's had a hysterectomy including cholecystectomy. She does report bilateral lower abdominal pain. She presents for surgical options. She reports right lower quadrant pain. She reports her bowels flip with bending. At height of 5 feet 5 inches, her ideal body weight is 149 pounds. She was 335 pounds. Her body mass index was 55.8. She was 186 pounds overweight. PAST MEDICAL HISTORY: 1. Morbid obesity due to excess calories 2. Body mass index of 55.8, initial 3. Osteoarthritis and osteonecrosis, left shoulder 4. Fibromyalgia 5. Meningioma, left eye 6. Cataract of both eyes 7. Osteoarthritis of the lower back 8. Teratoma of the spine 9. Osteoarthritis of the hips 10. Osteoarthritis of the knees 11. Gastroesophageal reflux disease 12. Dysphagia 13. Angina 14. Hypertensive heart disease. 15. Obstructive sleep apnea PAST SURGICAL HISTORY: 1. EGD 2. Colonoscopy incomplete 3. Hysterectomy 4. Right knee replacement 5. Cholecystectomy HOME MEDICATIONS: Home Medications Medication Instructions Recorded Confirmed Aspirin 81 mg PO DAILY 03/21/15 08/20/19 levETIRAcetam [Keppra] 750 mg PO BID 03/21/15 08/20/19 Levothyroxine Sodium 0.1 mg PO DAILY 07/30/19 08/20/19 Omeprazole 20 mg PO DAILY 07/30/19 08/20/19 Piroxicam 20 mg PO DAILY 07/30/19 08/20/19 rOPINIRole HCL [Requip] 0.5 mg PO BID 07/30/19 08/20/19 Acetaminophen [Tylenol Extra 500 mg PO DIRECTED PRN 08/01/19 08/20/19 Strength] Bumetanide [BUMEX] 1 mg PO DAILY PRN 08/01/19 08/20/19 Bumetanide [BUMEX] 2 mg PO DAILY 08/01/19 08/20/19 Diazepam [Valium] 5 mg PO ONCE 08/01/19 08/20/19 Potassium 99 mg PO DAILY 08/01/19 08/20/19 amLODIPine BESYLATE/BENAZEPRIL 1 each PO DAILY 08/01/19 08/20/19 [amLODIPine BESYLATE/BENAZEPRIL 5-10 MG] ALLERGIES: Allergies Allergy/AdvReac Type Severity Reaction Status Date / Time Sulfa (Sulfonamide Allergy Unknown Swelling, Verified 08/20/19 14:53 Antibiotics) REDNESS butorphanol [From Stadol] AdvReac Severe Hallucinati Verified 08/20/19 14:53 ons tramadol AdvReac Unknown Verified 08/20/19 14:53 SOCIAL HISTORY: No recent tobacco use. FAMILY HISTORY: No family history of ulcerative colitis disease or Crohn's disease. Family history of morbid obesity. No lupus in the family. No reports of stomach or esophageal cancer. Her father did have gastric ulcers as a child. Her daughter of uterine cancer. REVIEW OF ORGAN SYSTEMS: CONSTITUTIONAL: At height of 5 feet 5 inches, her ideal body weight is 149 pound s. She comes in 335 pounds. Her body mass index is 55.8. She is 186 pounds overweight. HEENT: Denies any active troubles with hearing. Wears glasses. Has troubles with swallowing. ENDOCRINE: No diabetes. Has hypothyroidism. CARDIOVASCULAR: Past reports of palpitations, heart attacks, chest pain. Has hypertension. RESPIRATORY: Has daytime somnolence. No asthma. GASTROINTESTINAL: Denies any bright red blood per rectum. Has change in bowel habits. Has gastroesophageal reflux disease. MUSCULOSKELETAL: Has lower back pain and joint pain. Has osteoarthritis of the knees. History of bilateral lower extremity edema. Has severe shoulder arthritis. NEURO: No headaches. Has seizure disorders including tumors of the brain. PSYCH: Has depression. No suicidal ideation. Has anxiety. RHEUMATOLOGIC: No lupus. No rheumatoid arthritis. HEMATOLOGIC: Denies any abnormal bleeding or bruising. No personal history of DVTs. SKIN: No rash. No skin cancer. PHYSICAL EXAM: VITAL SIGNS: Height 5 foot 5 inches, weight 335 pounds. BMI 55.8 GENERAL: Well-developed in no acute distress. HEENT: No scleral icterus. Extraocular movements grossly intact. Hears conversational speech. No nasal drainage. NECK: Supple without lymphadenopathy. CHEST: Nonlabored respirations with equal bilateral excursions. CARDIOVASCULAR: Regular rate and regular rhythm. Distal 2+ pulses. ABDOMEN: Obese, soft, nontender, nondistended. MUSCULOSKELETAL: No clubbing, cyanosis. Gross strength 5/5 distal lower extremities. 2+ pitting edema. NEURO: No focal or lateralizing signs. Cranial nerves 2 through 12 grossly within normal limits. PSYCH: Appropriate affect. Alert and oriented to person, place and time. SKIN: Good skin turgor. Well perfused. ASSESSMENT: 1. Morbid obesity due to excess calories 2. Body mass index of 55.8, initial 3. Osteoarthritis and osteonecrosis, left shoulder 4. Fibromyalgia 5. Meningioma, left eye 6. Cataract of both eyes 7. Osteoarthritis of the lower back 8. Teratoma of the spine 9. Osteoarthritis of the hips 10. Osteoarthritis of the knees 11. Gastroesophageal reflux disease 12. Dysphagia 13. Angina 14. Hypertensive heart disease. 15. Obstructive sleep apnea PLAN: 1. Bariatric options between a sleeve, band and a Krissy-en-Y gastric bypass were reviewed in detail. The patient elected for a sleeve gastrectomy. Robotic assisted approach described. 2. The [place] [facility] Data was also reviewed with benefits and risks as described. 3. An 8 page second-generation bariatric consent form was reviewed in detail including potential of bleeding, infection, leaks, adequate weight loss, nutritional deficiencies which the patient demonstrated understanding of the risks. 4. A 2 week high-protein low caloric 800 kcal diet described to address hepatomegaly. 5. Preoperative labs including complete metabolic panel and CBC with type and screen recommended. 6. DVT prophylaxis per [place] [facility]. 7. Antibiotic prophylaxis. 8. Inpatient hospitalization anticipated for more than 2 nights. 9. All questions and concerns were addressed with the patient. 10. She is high risk for perioperative complications due to prior history of multiple abdominal surgeries. Thank you for this consultation. Past Medical History Past Medical History: GERD/Reflux, Hypertension, Seizure Disorder, Sleep Apnea/CPAP/BIPAP Additional Past Medical History / Comment(s): LAST SEIZURE 2013, NEOPLASM OF MENANGIOMA, SLEEP APNEA (UNABLE TO USE MACHINE)., POLYMYALGIA RHEUMATICA, BACK PAIN, LEFT SHOULDER PAIN, LOW IRON, INCONTINENT- WEARS PADS. Pt has been dx with benign brain tumor 08/20/19: Pt states brain tumor is starting to grow. History of Any Multi-Drug Resistant Organisms: None Reported Past Surgical History: Back Surgery, Cholecystectomy, Heart Catheterization, Hysterectomy, Joint Replacement Additional Past Surgical History / Comment(s): MULTIPLE D & C'S , rt tka, HEMORRHOIDS, LAMINECTOMY X2, HEART CATH X3. COLONOSCOPY, EGD Past Anesthesia/Blood Transfusion Reactions: Previous Problems w/ Anesthesia Additional Past Anesthesia/Blood Transfusion Reaction / Comment(s): REACTION TO STADOL-CONFUSION, HALLUCINATIONS Smoking Status: Never smoker - Past Family History Mother Family Medical History: No Reported History Medications and Allergies Home Medications Medication Instructions Recorded Confirmed Type Aspirin 81 mg PO DAILY 03/21/15 09/29/19 History levETIRAcetam [Keppra] 750 mg PO BID 03/21/15 09/29/19 History Levothyroxine Sodium 0.1 mg PO DAILY 07/30/19 09/29/19 History rOPINIRole HCL [Requip] 0.5 mg PO BID 07/30/19 09/29/19 History Bumetanide [BUMEX] 2 mg PO DAILY 08/01/19 09/29/19 History Potassium 99 mg PO DAILY 08/01/19 09/29/19 History amLODIPine BESYLATE/BENAZEPRIL 1 each PO DAILY 08/01/19 09/29/19 History [amLODIPine BESYLATE/BENAZEPRIL 5-10 MG] Cholecalciferol [Vitamin D3 (25 10,000 unit PO DAILY 09/29/19 09/29/19 History Mcg = 1000 Iu)] Multivit/Folic Acid/Vit K1 1 tab PO DAILY 09/29/19 09/29/19 History [One-A-Day Women's 50 Plus Tab] Vitamin A Acetate [Vitamin A] 10,000 unit SL DAILY 09/29/19 09/29/19 History Allergies Allergy/AdvReac Type Severity Reaction Status Date / Time Sulfa (Sulfonamide Allergy Unknown Swelling, Verified 09/29/19 14:20 Antibiotics) REDNESS butorphanol [From Stadol] AdvReac Severe Hallucinati Verified 09/29/19 14:20 ons tramadol AdvReac Unknown Verified 09/29/19 14:20
[~2019-10-06 06:50] MED LIST changes: +DEXAMETHASONE SOD PHOSPHATE 10 MG/ML 1 ML VIAL IV ONE; +ENOXAPARIN 40 MG/0.4 ML SYRINGE SQ ONE; -LACTATED RINGERS 1,000 ML IV SCH; +ONDANSETRON 4 MG/2 ML VIAL IVP ONE; +PANTOPRAZOLE 40 MG/10 ML VIAL IV STA; +ceFAZolin 3 GM in SODIUM CHLORIDE 0.9% 100 ML IVPB ONE
[2019-10-06] MEDS ORDERED: LIDOCAINE 1% 20 ML VIAL (10MG/ML) FOR IV START INTRADERMA ONE (07:28)
[2019-10-06] MEDS: LACTATED RINGERS 1,000 ML IV SCH (07:39)
[2019-10-06] MEDS: CHLORHEXIDINE GLUCONATE 15 ML CUP MUCOUS MEM ONE ×2 (07:43→08:45)
[2019-10-06 07:57] LABS: Basophils # (A) 0.1 k/uL (0-0.2); Basophils % (A) 1 %; Eosinophils # (A) 0.4 k/uL (0-0.7); Eosinophils % (A) 4 %; HCT 39.4 % (34.0-46.0); HGB 13.3 gm/dL (11.4-16.0); Lymphocytes # (A) 1.5 k/uL (1.0-4.8); Lymphocytes % (A) 18 %; MCH 27.5 pg (25.0-35.0); MCHC 33.8 g/dL (31.0-37.0); MCV 81.3 fL (80.0-100.0); Mean Platelet Volume 7.2; Monocytes # (A) 0.4 k/uL (0-1.0); Monocytes % (A) 5 %; Neutrophils # (A) 5.7 k/uL (1.3-7.7); Neutrophils % (A) 68 %; Platelet Count 329 k/uL (150-450); RBC 4.85 m/uL (3.80-5.40); RDW 13.7 % (11.5-15.5); WBC 8.3 k/uL (3.8-10.6)
[2019-10-06 08:14] LABS: Albumin 4.5 g/dL (3.5-5.0); Calcium 9.6 mg/dL (8.4-10.2); Potassium 3.3 mmol/L (3.5-5.1); Total Bilirubin 1.1 mg/dL (0.2-1.3); Total Protein 7.7 g/dL (6.3-8.2)
[2019-10-06] MEDS ORDERED: POTASSIUM CHLORIDE 20 MEQ/100 ML BAG IVPB ONE (08:42)
[2019-10-06] MEDS ORDERED: SUCCINYLCHOLINE CHLORIDE VIAL 200 MG/10 ML VIAL IV ONE (08:42)
[2019-10-06] MEDS ORDERED: ROCURONIUM BROMIDE 10 MG/ML 10 ML VIAL IV ONE (08:42)
[2019-10-06] MEDS ORDERED: MIDAZOLAM 2 MG/2 ML VIAL ONE (08:42)
[2019-10-06] MEDS ORDERED: ePHEDrine SULFATE/0.9% NACL/PF 50 MG/5 ML SYRINGE IV ONE (08:42)
[2019-10-06] MEDS ORDERED: PROPOFOL 10 MG/ML 20 ML VIAL IV ONE (08:42)
[2019-10-06] MEDS ORDERED: NEOSTIGMINE 1 MG/ML 10 ML VIAL ONE (08:42)
[2019-10-06] MEDS ORDERED: LIDOCAINE 1% INJ 10MG/ML (20 ML MDV) ONE (08:42)
[2019-10-06] MEDS ORDERED: fentaNYL (PF) 50 MCG/ML 2 ML AMP ONE (08:42)
[2019-10-06] MEDS ORDERED: GLYCOPYRROLATE 0.2 MG/ML 2 ML VIAL ONE (08:42)
[2019-10-06] MEDS ORDERED: BUPIVACAIN-EPI 0.25%-1:200,000 30 ML VIAL SQ ONE ×2 (09:20→09:33)
[2019-10-06] MEDS ORDERED: LACTATED RINGERS 1,000 ML IV ONE (09:27)
[2019-10-06] MEDS ORDERED: POTASSIUM CHLORIDE 20 MEQ in WATER FOR INJECTION 1 100ML.BAG IVPB STA (09:31)
[2019-10-06] MEDS: HYDROmorphone 0.5 MG/0.5 ML SYRINGE IVP PRN ×3 (11:11→14:04)
--- NOTE | 2019-10-06 11:22 | P.OP ---
Date of Procedure: 10/06/19 Description of Procedure: SURGEON: SHIRLEY CACERES MD PREOPERATIVE DIAGNOSES: 1. Morbid obesity due to excess calories 2. Body mass index of 55.8, initial 3. Osteoarthritis and osteonecrosis, left shoulder 4. Fibromyalgia 5. Meningioma, left eye 6. Cataract of both eyes 7. Osteoarthritis of the lower back 8. Teratoma of the spine 9. Osteoarthritis of the hips 10. Osteoarthritis of the knees 11. Gastroesophageal reflux disease 12. Dysphagia 13. Angina 14. Hypertensive heart disease. 15. Obstructive sleep apnea POSTOPERATIVE DIAGNOSES: 1. Morbid obesity due to excess calories 2. Body mass index of 55.8, initial 3. Osteoarthritis and osteonecrosis, left shoulder 4. Fibromyalgia 5. Meningioma, left eye 6. Cataract of both eyes 7. Osteoarthritis of the lower back 8. Teratoma of the spine 9. Osteoarthritis of the hips 10. Osteoarthritis of the knees 11. Gastroesophageal reflux disease 12. Dysphagia 13. Angina 14. Hypertensive heart disease. 15. Obstructive sleep apnea 16. Fatty liver disease 17. Severe diffuse abdominal wall to greater omental adhesions throughout the entire abdomen OPERATION: 1. Robotic assisted daVinci Xi laparoscopic lysis of adhesions 2. Robotic assisted daVinci Xi laparoscopic sleeve gastrectomy with 40-Chadian bougie, 3-port technique 3. Intraoperative esophagogastroduodenoscopy. ANESTHESIA: Gen. local anesthetic ESTIMATED BLOOD LOSS: 10 mL SPECIMENS REMOVED: Sleeve gastrectomy COMPLICATIONS: None. INDICATIONS: Natali Desai is a 68-year-old female who comes with lifelong morbid obesity. She is completely medically supervised weight loss. All surgical options were reviewed. Secondary to multiple abdominal surgeries including troubles with intestines, she elected for sleeve gastrectomy. At height of 5 feet 5 inches, her ideal body weight is 149 pounds. She was 335 pounds. Her body mass index was 55.8. She comes in 308 pounds. She comes in for sleeve gastrectomy. All surgical options for morbid obesity had been described using the [place] bariatric surgery collaborative comorbidity resolution including complication risk score. A second-generation bariatric consent form was described in detail including the possibility of protein malnutrition, leaks, gastric stricture, venous thrombosis, gastroesophageal reflux disease, need for further surgery for which she demonstrated understanding. Benefits and risks of the procedure were described at length. Informed consent was obtained. DESCRIPTION: The patient was brought into the operating room theater. Preoperatively she had received Lovenox subcutaneously for DVT prophylaxis. Additionally she had Peridex oral solution as an oral decontaminant. After general induction, the abdomen was prepped and draped in standard sterile fashion. An Ioban draping was placed along the abdomen. A robotic da Helena Xi system was prepped and primed. The xiphoid to umbilicus measured 14 cm. At 12 cm from the xiphoid, proposed port sites were marked with indelible marker along the anterior axillary line bilaterally, mid axillary line bilaterally with each ports were marked 10 to 15 cm from each other. The senior assistant manager port was marked along the left lateral abdominal wall. The robotic stapler port was marked for the right midclavicular line. A 5 mm 0 degrees laparoscopic trocar entry was performed along the left upper quadrant. The abdomen was insufflated to 15 mmHg pressure was tolerated well. Diagnostic laparoscopy demonstrated no injury to bowel, viscera, or mesentery. The liver surface was remarkable for fatty liver disease. The liver edge was crisp consistent with low-carb high-protein diet for 2 weeks. No injury had occ urred to the small bowel or viscera. Along the hiatus no large prominent hiatal hernia was found. Severe omental to abdominal wall adhesions are found completely scoring the midline including lower abdomen as well as right upper quadrant. Additionally, a port on the right upper quadrant was avoided. A 12 mm port was placed along the left upper abdominal wall after exchanging the 5 mm port. A separate 8 mm port was placed along the left lateral abdominal wall. Please note that the ports were placed at least 20 cm away from the target anatomy. Care was taken to check each robotic arms were safely away from collision with the bed or the patient. At the epigastrium, a median sized Roberth liver retractor was placed under direct visualization with the Iron Diesel Technician Mechanic placed under the right shoulder of the patient. Next, 12-mm robot stapler port was placed along the left of the midline away from scar tissue. The camera 8-mm port was maintained along the epigastrium. The patient was repositioned in reverse Trendelenburg position at 20-degrees after lowering the bed. The robot was docked along the left side of the patient. Using a vessel sealer for arm 3, including grasper for arm 1, the robotic system was docked and primed as described. Instruments were interchanged by the senior assistant manager for stapler loads. The camera was placed at 30-degrees down. I had sat at the console. To obtain access to the distal stomach, vessel sealer was used to dissect the greater omentum from the abdominal wall for lysis of adhesions. The pylorus was identified and 6 cm proximally along the greater curvature of the stomach, the short gastrics were mobilized upwards to the angle of Hiss using a vessel sealer. Hemostasis was excellent during this portion of the procedure. Next, the upper pole of the stomach was adherent to the left teresa, which was gently dissected free using atraumatic grasper. An upper endoscopy was performed to evaluate the stomach mucosa and a 40-Chadian blunted bougie was placed into the stomach. Robotic stapler green loads 60 mm x 5, followed by white 60 mm x 1 loads were used to create the sleeve. Initial firing was across the antrum of the stomach towards the angle of His. The staple line was completely hemostatic and linear without corkscrewing. Hemostasis was excellent. The space from the angularis incisura of the sleeve was approximately 4 cm. I then went to the head of the bed to perform the intraoperative esophagogastroduodenoscopy leak test. The upper pole of the stomach was bathed using normal saline solution. The scope was withdrawn with careful inspection along the staple line for which no leaks were found along the entire length. Additionally,the sleeve was completely hemostatic without any encroachment along the angularis incisura. Its topology was a soft "J". No stricture was encountered upon placement of the scope. The GI tract was desufflated. The patient tolerated this portion of the procedure well. The scope was completely withdrawn. The robot was undocked. I then rescrubbed into case, whereby the irrigation fluid was aspirated from the abdominal cavity. Tisseal fibrin sealant was placed along the entire staple length. Once dried the Roberth liver retractor was removed. Attention was now brought to removal of the specimen. The distal end of the sleeve gastrectomy specimen was brought out through the 12 mm port at the left upper quadrant. The specimen was gently removed en total. No contamination had occurred during this process. All instruments and pneumoperitoneum including irrigation fluid was removed from the abdominal cavity. The 12 mm port site was closed using 0-Vicryl and Darrius Espinosason and irrigated with diluted hydrogen peroxide. The final incisions were closed using subcuticular interrupted suture of 4-0 Monocryl. Dermabond was applied to the skin once the skin had been cleansed. OptiFoam dressing was placed along the stomach extraction site. At the end of the procedure, needle, sponge, and instrument count was verified correct by the director surgical. The patient was taken to the postanesthesia care unit in stable condition. She had tolerated the procedure well. Intraoperative films and findings were reviewed with the patient's family. FINDINGS: 1. Negative intraoperative esophagogastrojejunoscopy leak test. 2. No hepatomegaly and no large hiatus hernia found 3. Total of 6 staplers used including 5 - 60 mm green robot guy and 1 - 60 mm white robot loads used to create the gastric sleeve. 4. Xiphoid to umbilicus of 14 cm. 5. Trocars placed 15 cm from xiphoid process 6. Sleeve gastrectomy 21 x 4 cm 7. Severe greater omentum to the abdominal wall completely obscuring the midline, the right upper quadrant and lower abdomen from previous abdominal surgery 8. Console time 24 minutes
[2019-10-06] MEDS ORDERED: diphenhydrAMINE 50 MG/ML 1 ML VIAL IVP PRN (11:23)
[2019-10-06] MEDS ORDERED: ONDANSETRON 8 MG in SODIUM CHLORIDE 0.9% 50 ML IVPB ONE (11:23)
[2019-10-06] MEDS ORDERED: METOCLOPRAMIDE 5 MG/ML 2 ML VIAL IVP PRN (11:23)
[2019-10-06] MEDS ORDERED: NALOXONE 0.4 MG/ML 1 ML VIAL IV PRN (11:23)
[2019-10-06] MEDS ORDERED: SCOPOLAMINE 1.5MG/72HR PATCH TRANSDERM SCH (11:30)
[2019-10-06] MEDS ORDERED: fentaNYL PCA 500 MCG/50 ML BAG IV PRN (12:00)
[2019-10-06] MEDS ORDERED: ONDANSETRON 4 MG/2 ML VIAL IVP ONE (12:00)
[2019-10-06] MEDS: ACETAMINOPHEN IV (For NPO) 1,000 MG in EMPTY BAG 1 BAG IVPB SCH ×4 (12:25→23:30)
[2019-10-06] MEDS ORDERED: Potassium Replacement Protocol 1 EACH MISC MISCELLANE PRN (14:52)
[2019-10-06] MEDS ORDERED: SODIUM CHLORIDE 0.9% 1,000 ML IV ONE (14:52)
[2019-10-06] MEDS: DEXAMETHASONE SOD PHOSPHATE 4 MG/ML 1 ML VIAL IV SCH ×3 (15:19→23:25)
[2019-10-06] MEDS: HYOSCYAMINE ORAL DROPS 1.875 MG/15 ML BOTTLE PO SCH ×3 (15:20→23:25)
[2019-10-06] MEDS: SIMETHICONE 40 MG/0.6 ML DROPS 2,000 MG/30 ML BOTTLE PO SCH ×3 (15:21→23:24)
[2019-10-06] MEDS: 0.9% NACL WITH KCL 20 MEQ/L 1,000 ML IV SCH (16:03)
[2019-10-06] MEDS: ALBUTEROL NEBULIZED 2.5 MG/3 ML INHALATION SCH ×3 (16:40→21:11)
[2019-10-06] MEDS: POTASSIUM CHLORIDE ER 20 MEQ TAB.ER PO SCH ×2 (16:42→16:44)
[2019-10-06] MEDS: POTASSIUM CHLORIDE 10 MEQ in WATER FOR INJECTION 1 100ML.BAG IVPB SCH ×4 (16:46→22:25)
[2019-10-06] MEDS ORDERED: ceFAZolin 3 GM in SODIUM CHLORIDE 0.9% 100 ML IVPB SCH (17:00)
[2019-10-06] MEDS: levETIRAcetam ORAL SOLN 500 MG/5 ML CUP PO SCH (22:02)
[2019-10-07] MEDS: LACTATED RINGERS 1,000 ML IV SCH (03:43)
[2019-10-07] MEDS: 0.9% NACL WITH KCL 20 MEQ/L 1,000 ML IV SCH ×2 (04:32)
[2019-10-07] MEDS: ACETAMINOPHEN IV (For NPO) 1,000 MG in EMPTY BAG 1 BAG IVPB SCH ×2 (04:32→09:51)
[2019-10-07] MEDS: SIMETHICONE 40 MG/0.6 ML DROPS 2,000 MG/30 ML BOTTLE PO SCH ×2 (05:32→13:06)
[2019-10-07] MEDS: HYOSCYAMINE ORAL DROPS 1.875 MG/15 ML BOTTLE PO SCH ×2 (05:32→13:06)
[2019-10-07] MEDS: DEXAMETHASONE SOD PHOSPHATE 4 MG/ML 1 ML VIAL IV SCH ×2 (05:32→13:06)
[2019-10-07] MEDS ORDERED: LEVOTHYROXINE 100 MCG TAB PO SCH (06:30)
[2019-10-07 07:55] VITALS: BP 124/69; PULSE 90; RESP 17; TEMP 98.8
[2019-10-07] MEDS ORDERED: 0.9% NACL WITH KCL 20 MEQ/L 1,000 ML IV SCH (08:00)
[2019-10-07] MEDS: ALBUTEROL NEBULIZED 2.5 MG/3 ML INHALATION SCH ×2 (08:27→12:23)
[2019-10-07 08:30] LABS: Basophils % (A) 0 %; Eosinophils % (A) 0 %; HCT 37.5 % (34.0-46.0); Lymphocytes # (A) 0.5 k/uL (1.0-4.8); Lymphocytes % (A) 3 %; MCH 26.6 pg (25.0-35.0); MCHC 32.1 g/dL (31.0-37.0); MCV 82.8 fL (80.0-100.0); Mean Platelet Volume 7.4; Monocytes # (A) 0.3 k/uL (0-1.0); Monocytes % (A) 2 %; Neutrophils # (A) 13.2 k/uL (1.3-7.7); Neutrophils % (A) 93 %; Platelet Count 263 k/uL (150-450); RBC 4.53 m/uL (3.80-5.40); RDW 14.1 % (11.5-15.5); WBC 14.2 k/uL (3.8-10.6)
[2019-10-07 08:44] LABS: Calcium 9.2 mg/dL (8.4-10.2); Magnesium 1.7 mg/dL (1.6-2.3); Phosphorus 3.4 mg/dL (2.5-4.5); Potassium 4.3 mmol/L (3.5-5.1)
[2019-10-07] MEDS ORDERED: LISINOPRIL 10 MG TAB PO SCH (09:00)
[2019-10-07] MEDS ORDERED: BUMETANIDE 1 MG TAB PO SCH (09:00)
[2019-10-07] MEDS ORDERED: PANTOPRAZOLE 40 MG/10 ML VIAL IV SCH (09:00)
[2019-10-07] MEDS ORDERED: ENOXAPARIN 40 MG/0.4 ML SYRINGE SQ SCH (09:00)
[2019-10-07] MEDS ORDERED: amLODIPine 5 MG TAB PO SCH (09:00)
[2019-10-07] MEDS ORDERED: POTASSIUM CHLORIDE ER 10 MEQ TAB.ER.PRT PO SCH (09:00)
--- NOTE | 2019-10-07 09:12 | FL ---
EXAMINATION TYPE: FL UGI DATE OF EXAM: 10/07/2019 LIMITED UGI: CLINICAL HISTORY: Morbid Obesity, gastric sleeve surgery yesterday. TECHNIQUE: Limited esophagram is performed utilizing 25 oz of Isovue-370. A total of 38 seconds of f luoroscopic time was utilized during procedure. 73 spot images saved to PACS. COMPARISON: CT abdomen and pelvis August 26, 2019. FINDINGS: Exam slightly suboptimal due to patient's large body habitus. The patient swallowed contra st without difficulty or delay. Esophageal peristalsis and motility are within normal limits. There is good flow of contrast along the diaphragmatic hiatus into proximal stomach and subsequent flow in to gastric sleeve early proximal anastomosis. There is satisfactory flow from distal anastomosis into pylorus and duodenal sweep. Patient remains asymptomatic. There is no evidence of contrast extravasa tion to suggest leak. Incidental redemonstration of cholecystectomy clips. IMPRESSION: No evidence of leak or significant obstruction status post recent gastric sleeve surgery.
[2019-10-07] MEDS ORDERED: SODIUM CHLORIDE 0.9% 2,000 ML IV ONE (09:39)
[2019-10-07] MEDS: levETIRAcetam ORAL SOLN 500 MG/5 ML CUP PO SCH (09:54)
--- NOTE | 2019-10-07 10:25 | P.DS ---
<Mariela Hurtado - Last Filed: 10/07/19 10:24> Providers Expected date of discharge: 10/07/19 Hospital Course: 68-year-old female who underwent robotic-assisted da Helena laparoscopic sleeve gastrectomy with Dr. Hermosillo. Patient is doing well postoperatively without any immediate complications. Esophagram completed postoperatively negative for leak or obstruction. Patient is tolerating liquid diet without nausea or vomiting. Pain is controlled on oral medications. Vital signs are stable. She is stable for discharge home today. Please see EMR for further hospital course details. Discharge Diagnosis 1. Morbid obesity due to excess calories 2. Body mass index of 55.8, initial 3. Osteoarthritis and osteonecrosis, left shoulder 4. Fibromyalgia 5. Meningioma, left eye 6. Cataract of both eyes 7. Osteoarthritis of the lower back 8. Teratoma of the spine 9. Osteoarthritis of the hips 10. Osteoarthritis of the knees 11. Gastroesophageal reflux disease 12. Dysphagia 13. Angina 14. Hypertensive heart disease. 15. Obstructive sleep apnea 16. Fatty liver disease 17. Severe diffuse abdominal wall to greater omental adhesions throughout the entire abdomen Nurse practitioner note has been reviewed by physician. Signing provider agrees with the documented findings, assessment, and plan of care. Plan - Discharge Summary Discharge Rx Participant: No New Discharge Prescriptions: New Bisacodyl [Dulcolax] 5 mg PO DAILY PRN #10 tablet. PRN Reason: Constipation Simethicone 40 mg/0.6 ml Drops [Mylicon Drops] 40 mg PO PCHS PRN #30 ml PRN Reason: gas Omeprazole 40 mg PO DAILY #30 capsule. Ondansetron Odt [Zofran Odt] 4 mg PO Q8HR PRN #9 tab PRN Reason: Nausea Acetaminophen Oral Susp [Tylenol Oral Susp] 650 mg PO Q4H PRN #500 ml PRN Reason: Pain Continue levETIRAcetam [Keppra] 750 mg PO BID Levothyroxine Sodium 0.1 mg PO DAILY rOPINIRole HCL [Requip] 0.5 mg PO BID Bumetanide [BUMEX] 2 mg PO DAILY amLODIPine BESYLATE/BENAZEPRIL [amLODIPine BESYLATE/BENAZEPRIL 5-10 MG] 1 each PO DAILY Potassium 99 mg PO DAILY Discontinued Aspirin 81 mg PO DAILY Cholecalciferol [Vitamin D3 (25 Mcg = 1000 Iu)] 10,000 unit PO DAILY Vitamin A Acetate [Vitamin A] 10,000 unit SL DAILY Multivit/Folic Acid/Vit K1 [One-A-Day Women's 50 Plus Tab] 1 tab PO DAILY Discharge Medication List levETIRAcetam [Keppra] 750 mg PO BID 03/21/15 [History] Levothyroxine Sodium 0.1 mg PO DAILY 07/30/19 [History] rOPINIRole HCL [Requip] 0.5 mg PO BID 07/30/19 [History] Bumetanide [BUMEX] 2 mg PO DAILY 08/01/19 [History] Potassium 99 mg PO DAILY 08/01/19 [History] amLODIPine BESYLATE/BENAZEPRIL [amLODIPine BESYLATE/BENAZEPRIL 5-10 MG] 1 each PO DAILY 08/01/19 [History] Acetaminophen Oral Susp [Tylenol Oral Susp] 650 mg PO Q4H PRN #500 ml 10/07/19 [Rx] Bisacodyl [Dulcolax] 5 mg PO DAILY PRN #10 tablet. 10/07/19 [Rx] Omeprazole 40 mg PO DAILY #30 capsule. 10/07/19 [Rx] Ondansetron Odt [Zofran Odt] 4 mg PO Q8HR PRN #9 tab 10/07/19 [Rx] Simethicone 40 mg/0.6 ml Drops [Mylicon Drops] 40 mg PO PCHS PRN #30 ml 10/07/19 [Rx] Follow up Appointment(s)/Referral(s): Favio Hurd MD [Primary Care Provider] - 1 Week (Please call office October 09 for your follow-up appointment. Thank you.) [facility] [place] [facility] - 10/10/19 10:00 am Patient Instructions/Handouts: Laparoscopic Sleeve Gastrectomy (DC) Activity/Diet/Wound Care/Special Instructions: No lifting over 4 pounds You may shower. No soaking or tub baths Very light activity until you are reevaluated at your follow up appointment with your surgeon Continue liquid diet No straws or carbonated beverages Drink at least 64 ounces of fluids daily Open or crush all medications larger than the size of a tic-tac Discharge Disposition: HOME SELF-CARE <Esme Hermosillo N - Last Filed: 10/08/19 10:14> Providers Date of admission: 10/06/19 06:50 Attending physician: Esme Hermosillo Primary care physician: Favio Hurd
[2019-10-07 10:48] VITALS: BMI 49.8
[2019-10-08] MEDS ORDERED: BISACODYL 5 MG TABLET.DR PO PRN (08:00)
--- NOTE | 2019-10-08 10:14 | P.PN ---
Progress Note - Text Progress Note Date: 10/08/19 Follow-up phone call at home performed. Patient is doing well. She is encouraged to take fluids. Pain is controlled. She is encouraged to use milk of magnesia for constipation. Also encouraged to use Tylenol scheduled as well as using simethicone gas drops to help with gas pains. Patient scheduled at the bariatric center tomorrow for IV fluid hydration.
== END 2019-10-07 14:38 | disposition home or self-care (01) | DRG 620 ==
LOC: 2ORMAIN 06:50 → 4SSUR 14:14
PROVIDERS: ADMIT Surgery Plastic and Reconstructive Surgery; ATTEND Surgery Plastic and Reconstructive Surgery
PROC: 0DJ08ZZ Inspection of Upper Intestinal Tract, Via Natural or Artificial Opening Endoscopic (ICD-10-PCS; principal; 2019-10-06 08:35)
PROC: 8E0W4CZ Robotic Assisted Procedure of Trunk Region, Percutaneous Endoscopic Approach (ICD-10-PCS; principal; 2019-10-06 08:35)
PROC: 0DNU4ZZ Release Omentum, Percutaneous Endoscopic Approach (ICD-10-PCS; principal; 2019-10-06 08:35)
PROC: 0DB64Z3 Excision of Stomach, Percutaneous Endoscopic Approach, Vertical (ICD-10-PCS; principal; 2019-10-06 08:35)
DX: E66.01 Morbid (severe) obesity due to excess calories (principal); M87.812 Other osteonecrosis, left shoulder; D32.9 Benign neoplasm of meninges, unspecified; G40.909 Epilepsy, unspecified, not intractable, without status epilepticus; G47.33 Obstructive sleep apnea (adult) (pediatric); H26.9 Unspecified cataract; I11.9 Hypertensive heart disease without heart failure; I20.9 Angina pectoris, unspecified; K21.9 Gastro-esophageal reflux disease without esophagitis; K59.00 Constipation, unspecified; D48.0 Neoplasm of uncertain behavior of bone and articular cartilage; M16.0 Bilateral primary osteoarthritis of hip; M17.0 Bilateral primary osteoarthritis of knee; M35.3 Polymyalgia rheumatica; Z96.653 Presence of artificial knee joint, bilateral; K29.50 Unspecified chronic gastritis without bleeding; M79.7 Fibromyalgia; R13.10 Dysphagia, unspecified; Z68.43 Body mass index [BMI] 50.0-59.9, adult; Z79.82 Long term (current) use of aspirin; Z79.899 Other long term (current) drug therapy; Z86.011 Personal history of benign neoplasm of the brain; Z90.710 Acquired absence of both cervix and uterus; Z90.89 Acquired absence of other organs; Z90.49 Acquired absence of other specified parts of digestive tract
CPT/HCPCS: 74240; 80051; 80053; 82310; 82565; 83735; 84100; 84520; 85025; 86850; 86900; 86901; 88307; 94760; 94762

== ENCOUNTER → 2019-10-09 | Outpatient (CLI) | payer MEDICARE, OTHER ==
[~2019-10-09] MED LIST changes: -DEXAMETHASONE SOD PHOSPHATE 10 MG/ML 1 ML VIAL IV ONE; -ENOXAPARIN 40 MG/0.4 ML SYRINGE SQ ONE; -ONDANSETRON 4 MG/2 ML VIAL IVP ONE; -PANTOPRAZOLE 40 MG/10 ML VIAL IV STA; +SODIUM CHLORIDE 0.9% 2,000 ML IV NR; +SODIUM CHLORIDE 0.9% 500 ML 500 ML in EMPTY BAG 1 BAG IV PRN; -ceFAZolin 3 GM in SODIUM CHLORIDE 0.9% 100 ML IVPB ONE
[2019-10-09 09:12] VITALS: BP 158/76; PULSE 74; RESP 16; TEMP 97.7
== END | disposition home or self-care (01) ==
LOC: PROCWHC3 08:47
PROVIDERS: ATTEND Surgery Plastic and Reconstructive Surgery
DX: E86.0 Dehydration (principal)
CPT/HCPCS: 96360; 96361

== ENCOUNTER → 2019-10-24 | Outpatient (CLI) | payer MEDICARE, OTHER ==
[~2019-10-24] MED LIST changes: +ONDANSETRON 4 MG/2 ML VIAL IVP STA; +SCOPOLAMINE 1.5MG/72HR PATCH TRANSDERM SCH; -SODIUM CHLORIDE 0.9% 2,000 ML IV NR; -SODIUM CHLORIDE 0.9% 500 ML 500 ML in EMPTY BAG 1 BAG IV PRN
[2019-10-24 10:53] VITALS: BP 144/84; PULSE 102; RESP 16; TEMP 98.5
[2019-10-24] MEDS: SODIUM CHLORIDE 0.9% 1,000 ML IV SCH ×2 (10:55→11:54)
--- NOTE | 2019-10-24 11:52 | P.PN ---
Subjective Progress Note Date: 10/24/19 Has nausea, left lower quadrant abdominal pain. History of small bowel obstructions in the past. PLAN: 1. Recommend AXR 2. IV fluid hydration ffor dehydration Objective - Vital Signs Vital signs: Vital Signs Temp 98.5 F 10/24/19 10:51 Pulse 102 H 10/24/19 10:51 Resp 16 10/24/19 10:51 BP 144/84 10/24/19 10:51 Pulse Ox Intake & Output 10/23/19 10/24/19 10/24/19 18:59 06:59 18:59 Weight 127.459 kg
== END | disposition home or self-care (01) ==
LOC: PROCWHC3 10:42
PROVIDERS: ATTEND Surgery Plastic and Reconstructive Surgery
DX: E86.0 Dehydration (principal)
CPT/HCPCS: 96360; 96361; 96375

== ENCOUNTER → 2019-10-24 | Outpatient (CLI) | payer MEDICARE, OTHER ==
--- NOTE | 2019-10-24 14:09 | XR ---
EXAMINATION TYPE: XR abdomen 2V DATE OF EXAM: 10/24/2019 1:31 PM CLINICAL HISTORY: Abdominal pain. Recent gastric sleeve. TECHNIQUE: Upright and supine abdominal radiographs were obtained. COMPARISON: None. FINDINGS: Air is seen throughout the nondilated colon. No dilated small bowel. No pneumoperitoneum on the upright view. Osseous structures are grossly intact with mild degenerative changes of the hips a nd moderate of the lumbosacral junction. Cholecystectomy clips are present. Lung bases are well aerat ed. IMPRESSION: No pneumoperitoneum. Nonobstructive bowel gas pattern.
== END | disposition home or self-care (01) ==
LOC: RADXRMAIN 13:19
PROVIDERS: ATTEND Surgery Plastic and Reconstructive Surgery
DX: R10.31 Right lower quadrant pain (principal); R10.32 Left lower quadrant pain; Z88.2 Allergy status to sulfonamides; Z88.6 Allergy status to analgesic agent
CPT/HCPCS: 74019

== ENCOUNTER → 2019-10-29 | Outpatient (CLI) | payer MEDICARE, OTHER ==
--- NOTE | 2019-10-29 15:04 | P.PN ---
Subjective Progress Note Date: 10/29/19 She is feeling better. No further nausea. She is getting Magnesium infusion. She no longer has troubles with her bowels. Incisional pain improved. She is eating. ABDOMEN: No hernia. ASSESSMENT: 1. Morbid obesity PLAN: 1. Continue with Magnesium 2. Re-check of labs in 2 days for electrolytes. Objective - Vital Signs Vital signs: Intake & Output 10/28/19 10/29/19 10/29/19 18:59 06:59 18:59 Weight 132.903 kg
[2019-10-29 17:23] VITALS: BP 140/51; PULSE 63; RESP 16; TEMP 98.2; BMI 48.7
== END | disposition home or self-care (01) ==
LOC: BARWHC3 12:48
PROVIDERS: ATTEND Surgery Plastic and Reconstructive Surgery
DX: E66.01 Morbid (severe) obesity due to excess calories (principal); Z68.42 Body mass index [BMI] 45.0-49.9, adult
CPT/HCPCS: 99211

== ENCOUNTER → 2019-10-31 | Outpatient (CLI) | payer MEDICARE, OTHER ==
[2019-10-31 18:39] LABS: Anion Gap 15.9 mmol/L (4.00-12.00); Carbon Dioxide 31.1 mmol/L (21.6-31.8); Potassium 3.4 mmol/L (3.5-5.5)
== END | disposition home or self-care (01) ==
LOC: LABWHC1 10:34
PROVIDERS: ATTEND Surgery Plastic and Reconstructive Surgery
DX: E87.6 Hypokalemia (principal); E83.42 Hypomagnesemia
CPT/HCPCS: 36415; 80051

== ENCOUNTER → 2019-11-05 | Outpatient (CLI) | payer MEDICARE, OTHER ==
[2019-11-05 13:58] VITALS: BP 123/59; PULSE 69; TEMP 97.9; BMI 48.5
--- NOTE | 2019-11-05 14:40 | P.PN ---
Subjective Progress Note Date: 11/05/19 DATE OF SERVICE: 11/05/2019 CHIEF COMPLAINT: Morbid obesity HISTORY OF PRESENT ILLNESS: Natali Desai is a 69-year-old female status post sleeve gastrectomy 10/06/2019. She is 1 month out. She reports weakness. Her protein intake is below 50 grams daily. She is barely getting 30 grams daily of protein. Her bowels are moving. At height of 5 feet 5 inches, her ideal body weight is 149 pounds. Her highest weight is 335 pounds. Her body mass index was 55.9. She comes in 291 pounds from 2 weeks ago. She has lost 1 pounds in 1 month. Her BMI is 48.6. Her lifetime weight loss is 44 pounds. Percent excess weight loss is 24%. She is 142 pounds overweight. PHYSICAL EXAM: VITAL SIGNS: Height 5 foot 5 inches, weight 291 pounds. BMI 48.6 Vital Signs Temp 97.9 F 11/05/19 13:51 Pulse 69 11/05/19 13:51 Resp BP 123/59 11/05/19 13:51 Pulse Ox GENERAL: Well-developed in no acute distress. HEENT: No scleral icterus. Extraocular movements grossly intact. Hears conversational speech. No nasal drainage. NECK: Supple without lymphadenopathy. CHEST: Nonlabored respirations with equal bilateral excursions. CARDIOVASCULAR: Distal 2+ pulses. ABDOMEN: No hernia. No perionitis. Incisions are clean, dry, and intact. MUSCULOSKELETAL: No clubbing, cyanosis. Gross strength 5/5 distal lower extremities. NEURO: No focal or lateralizing signs. Cranial nerves 2 through 12 grossly within normal limits. PSYCH: Appropriate affect. Alert and oriented to person, place and time. SKIN: Good skin turgor. Well perfused. ASSESSMENT: 1. Morbid obesity due to excess calories 2. Body mass index of 55.8 to 48.6 3. Osteoarthritis and osteonecrosis, left shoulder 4. Fibromyalgia 5. Meningioma, left eye 6. Cataract of both eyes 7. Osteoarthritis of the lower back 8. Teratoma of the spine 9. Osteoarthritis of the hips 10. Osteoarthritis of the knees 11. Gastroesophageal reflux disease 12. Dysphagia 13. Angina 14. Hypertensive heart disease. 15. Obstructive sleep apnea 16. Vitamin A deficiency 17. Vitamin D deficiency 18. Secondary hyperparathyroidism 19. Iron deficiency anemia 20. Status post sleeve gastrectomy PLAN: 1. Recommend protein increase to 75 grams per day 2. Recommend change of protein shakes 3. Re-check full labs Objective - Vital Signs Vital signs: Vital Signs Temp 97.9 F 11/05/19 13:51 Pulse 69 11/05/19 13:51 Resp BP 123/59 11/05/19 13:51 Pulse Ox Intake & Output 11/04/19 11/05/19 11/05/19 18:59 06:59 18:59 Weight 132.358 kg
== END | disposition home or self-care (01) ==
LOC: BARWHC3 12:54
PROVIDERS: ATTEND Surgery Plastic and Reconstructive Surgery
DX: Z48.815 Encounter for surgical aftercare following surgery on the digestive system (principal); R53.1 Weakness; E66.01 Morbid (severe) obesity due to excess calories; Z68.42 Body mass index [BMI] 45.0-49.9, adult; M19.012 Primary osteoarthritis, left shoulder; M87.812 Other osteonecrosis, left shoulder; M79.7 Fibromyalgia; D32.9 Benign neoplasm of meninges, unspecified; M47.816 Spondylosis without myelopathy or radiculopathy, lumbar region; M17.0 Bilateral primary osteoarthritis of knee; M16.0 Bilateral primary osteoarthritis of hip; K21.9 Gastro-esophageal reflux disease without esophagitis; D48.0 Neoplasm of uncertain behavior of bone and articular cartilage; H26.9 Unspecified cataract; I11.9 Hypertensive heart disease without heart failure; G47.33 Obstructive sleep apnea (adult) (pediatric); E55.9 Vitamin D deficiency, unspecified; E50.9 Vitamin A deficiency, unspecified; N25.81 Secondary hyperparathyroidism of renal origin; D50.9 Iron deficiency anemia, unspecified; R13.10 Dysphagia, unspecified; I20.9 Angina pectoris, unspecified
CPT/HCPCS: 97803; G0463; 99211

== ENCOUNTER 2019-11-10 14:06 | Observation (INO) | payer MEDICARE, OTHER ==
[2019-11-10] MEDS ORDERED: ONDANSETRON 4 MG/2 ML VIAL IVP PRN (14:26)
[2019-11-10] MEDS ORDERED: NALOXONE 0.4 MG/ML 1 ML VIAL IV PRN (14:26)
[2019-11-10] MEDS ORDERED: SIMETHICONE 40 MG/0.6 ML DROPS 2,000 MG/30 ML BOTTLE PO PRN (14:26)
[2019-11-10] MEDS ORDERED: Potassium Replacement Protocol 1 EACH MISC MISCELLANE PRN (14:29)
--- NOTE | 2019-11-10 14:33 | P.GSHP ---
History of Present Illness H&P Date: 11/10/19 DATE OF SERVICE: 11/10/2019 CHIEF COMPLAINT: Intractable nausea and vomiting HISTORY OF PRESENT ILLNESS: Natali Desai is a 69-year-old female status post sleeve gastrectomy, 10/06/2019. She is over 1 month out. For the last 3 days, she has intractable nausea and vomiting including difficulty with swallowing. She reports history of bowel obstruction including history of diverticulosis and diverticulitis. She had recent blood work with potassium of less than 3.0 to 2.8 including low magnesium of 1.6. Last week she was doing well. Despite, IV fluid hydration, she still has nausea. She take bumex regularly for swelling of her legs. At height of 5 feet 5 inches, her ideal body weight is 149 pounds. She was 335 pounds. Today she comes in 282 pounds. She has lost 53 pounds lifetime. Her body mass index was 55.8 now 47.0. Percent excess weight loss of 53 pounds. She is 133 pounds overweight. PAST MEDICAL HISTORY: 1. Morbid obesity due to excess calories 2. Body mass index of 55.8, initial 3. Osteoarthritis and osteonecrosis, left shoulder 4. Fibromyalgia 5. Meningioma, left eye 6. Cataract of both eyes 7. Osteoarthritis of the lower back 8. Teratoma of the spine 9. Osteoarthritis of the hips 10. Osteoarthritis of the knees 11. Gastroesophageal reflux disease 12. Dysphagia 13. Angina 14. Hypertensive heart disease. 15. Obstructive sleep apnea PAST SURGICAL HISTORY: 1. EGD 2. Colonoscopy incomplete 3. Hysterectomy 4. Right knee replacement 5. Cholecystectomy 6. Sleeve gastrectomy HOME MEDICATIONS: Home Medications Medication Instructions Recorded Confirmed Aspirin 81 mg PO DAILY 03/21/15 08/20/19 levETIRAcetam [Keppra] 750 mg PO BID 03/21/15 08/20/19 Levothyroxine Sodium 0.1 mg PO DAILY 07/30/19 08/20/19 Omeprazole 20 mg PO DAILY 07/30/19 08/20/19 Piroxicam 20 mg PO DAILY 07/30/19 08/20/19 rOPINIRole HCL [Requip] 0.5 mg PO BID 07/30/19 08/20/19 Acetaminophen [Tylenol Extra 500 mg PO DIRECTED PRN 08/01/19 08/20/19 Strength] Bumetanide [BUMEX] 1 mg PO DAILY PRN 08/01/19 08/20/19 Bumetanide [BUMEX] 2 mg PO DAILY 08/01/19 08/20/19 Diazepam [Valium] 5 mg PO ONCE 08/01/19 08/20/19 Potassium 99 mg PO DAILY 08/01/19 08/20/19 amLODIPine BESYLATE/BENAZEPRIL 1 each PO DAILY 08/01/19 08/20/19 [amLODIPine BESYLATE/BENAZEPRIL 5-10 MG] ALLERGIES: Allergies Allergy/AdvReac Type Severity Reaction Status Date / Time Sulfa (Sulfonamide Allergy Unknown Swelling, Verified 08/20/19 14:53 Antibiotics) REDNESS butorphanol [From Stadol] AdvReac Severe Hallucinati Verified 08/20/19 14:53 ons tramadol AdvReac Unknown Verified 08/20/19 14:53 SOCIAL HISTORY: No recent tobacco use. FAMILY HISTORY: No family history of ulcerative colitis disease or Crohn's disease. Family history of morbid obesity. No lupus in the family. No reports of stomach or esophageal cancer. Her father did have gastric ulcers as a child. Her daughter of uterine cancer. REVIEW OF ORGAN SYSTEMS: CONSTITUTIONAL: At height of 5 feet 5 inches, her ideal body weight is 149 pounds. She comes in 335 pounds. Her body mass index is 55.8. She is 186 pounds overweight. HEENT: Denies any active troubles with hearing. Wears glasses. Has troubles with swallowing. ENDOCRINE: No diabetes. Has hypothyroidism. CARDIOVASCULAR: Past reports of palpitations, heart attacks, chest pain. Has hypertension. RESPIRATORY: Has daytime somnolence. No asthma. GASTROINTESTINAL: Denies any bright red blood per rectum. Has change in bowel habits. Has gastroesophageal reflux disease. MUSCULOSKELETAL: Has lower back pain and joint pain. Has osteoarthritis of the knees. History of bilateral lower extremity edema. Has severe shoulder arthritis. NEURO: No headaches. Has seizure disorders including tumors of the brain. PSYCH: Has depression. No suicidal ideation. Has anxiety. RHEUMATOLOGIC: No lupus. No rheumatoid arthritis. HEMATOLOGIC: Denies any abnormal bleeding or bruising. No personal history of DVTs. SKIN: No rash. No skin cancer. PHYSICAL EXAM: VITAL SIGNS: Height 5 foot 5 inches, weight 282 pounds. BMI 47.1 Vital Signs Temp 98.2 F 11/10/19 15:00 Pulse 65 11/10/19 15:00 Resp 12 11/10/19 15:00 BP 135/73 11/10/19 15:00 Pulse Ox 97 11/10/19 15:00 Intake & Output 11/10/19 11/10/19 11/11/19 06:59 18:59 06:59 Weight 132 kg GENERAL: Well-developed in no acute distress. HEENT: No scleral icterus. Extraocular movements grossly intact. Hears conversational speech. No nasal drainage. NECK: Supple without lymphadenopathy. CHEST: Nonlabored respirations with equal bilateral excursions. CARDIOVASCULAR: Regular rate and regular rhythm. Distal 2+ pulses. ABDOMEN: Obese, soft, nontender, nondistended. MUSCULOSKELETAL: No clubbing, cyanosis. Gross strength 5/5 distal lower extremities. 2+ pitting edema. NEURO: No focal or lateralizing signs. Cranial nerves 2 through 12 grossly within normal limits. PSYCH: Appropriate affect. Alert and oriented to person, place and time. SKIN: Good skin turgor. Well perfused. STUDIES: CT of the abdomen and pelvis shows no bowel obstruction. ASSESSMENT: 1. Morbid obesity due to excess calories 2. Body mass index of 55.8 to 47.1 3. Osteoarthritis and osteonecrosis, left shoulder 4. Fibromyalgia 5. Meningioma, left eye 6. Cataract of both eyes 7. Osteoarthritis of the lower back 8. Teratoma of the spine 9. Osteoarthritis of the hips 10. Osteoarthritis of the knees 11. Gastroesophageal reflux disease 12. Dysphagia 13. Angina 14. Hypertensive heart disease. 15. Obstructive sleep apnea 16. Hypokalemia 17. Hypomagnesia 18. Dehydration 19. History of small bowel obstruction 20. History of diverticulosis with diverticulitis PLAN: 1. Recommed potassium IV infusion and oral 2. Recommend magnesium infusion 3. IV fluid hydration Past Medical History Past Medical History: GERD/Reflux, Hypertension, Seizure Disorder, Sleep Apnea/CPAP/BIPAP Additional Past Medical History / Comment(s): LAST SEIZURE 2013, NEOPLASM OF MENANGIOMA, SLEEP APNEA (UNABLE TO USE MACHINE)., POLYMYALGIA RHEUMATICA, BACK PAIN, LEFT SHOULDER PAIN, LOW IRON, INCONTINENT- WEARS PADS. Pt has been dx with benign brain tumor 08/20/19: Pt states brain tumor is starting to grow. History of Any Multi-Drug Resistant Organisms: None Reported Past Surgical History: Back Surgery, Bariatric Surgery, Cholecystectomy, Heart Catheterization, Hysterectomy, Joint Replacement Additional Past Surgical History / Comment(s): MULTIPLE D & C'S , rt tka, HEMORRHOIDS, LAMINECTOMY X2, HEART CATH X3. COLONOSCOPY, EGD Sleeve [id number] Past Anesthesia/Blood Transfusion Reactions: Previous Problems w/ Anesthesia Additional Past Anesthesia/Blood Transfusion Reaction / Comment(s): REACTION TO STADOL-CONFUSION, HALLUCINATIONS Smoking Status: Never smoker - Past Family History Mother Family Medical History: No Reported History Medications and Allergies Home Medications Medication Instructions Recorded Confirmed Type Levothyroxine Sodium 100 mcg PO DAILY 07/30/19 11/10/19 History Potassium 99 mg PO DAILY 08/01/19 11/10/19 History amLODIPine BESYLATE/BENAZEPRIL 1 cap PO BID 08/01/19 11/10/19 History [amLODIPine BESYLATE/BENAZEPRIL 5-10 MG] Simethicone 40 mg/0.6 ml Drops 40 mg PO PCHS PRN #30 ml 10/07/19 11/10/19 Rx [Mylicon Drops] Cyclobenzaprine [Flexeril] 10 mg PO TID PRN 11/10/19 11/10/19 History Omeprazole 20 mg PO DAILY 11/10/19 11/10/19 History levETIRAcetam [Keppra Oral 750 mg PO BID 11/10/19 11/10/19 History Solution] Allergies Allergy/AdvReac Type Severity Reaction Status Date / Time Sulfa (Sulfonamide Allergy Unknown Swelling, Verified 11/10/19 16:08 Antibiotics) REDNESS butorphanol [From Stadol] AdvReac Severe Hallucinati Verified 11/10/19 16:08 ons tramadol AdvReac Unknown Verified 11/10/19 16:08 Assessment and Plan (1) Hypokalemia due to loss of potassium Current Visit: Yes Status: Acute Code(s): E87.6 - HYPOKALEMIA SNOMED Code(s): 34535538 (2) Hypomagnesemia Current Visit: Yes Status: Acute Code(s): E83.42 - HYPOMAGNESEMIA SNOMED Code(s): 797663178 (3) Dehydration Current Visit: Yes Status: Acute Code(s): E86.0 - DEHYDRATION SNOMED Code(s): 89557124 (4) History of small bowel obstruction Current Visit: Yes Status: Acute Code(s): Z87.19 - PERSONAL HISTORY OF OTHER DISEASES OF THE DIGESTIVE SYSTEM SNOMED Code(s): 352210418222341 (5) Diverticulosis Current Visit: Yes Status: Acute Code(s): K57.90 - DVRTCLOS OF INTEST, PART UNSP, W/O PERF OR ABSCESS W/O BLEED SNOMED Code(s): 637648323 (6) Morbid obesity due to excess calories Current Visit: Yes Status: Acute Code(s): E66.01 - MORBID (SEVERE) OBESITY DUE TO EXCESS CALORIES SNOMED Code(s): 167737011 (7) BMI 45.0-49.9, adult Current Visit: Yes Status: Acute Code(s): Z68.42 - BODY MASS INDEX (BMI) 45.0-49.9, ADULT SNOMED Code(s): 737160580
[2019-11-10] MEDS: POTASSIUM CHLORIDE 10 MEQ in WATER FOR INJECTION 1 100ML.BAG IVPB SCH ×5 (16:41→23:23)
[2019-11-10] MEDS: 0.9% NACL WITH KCL 20 MEQ/L 1,000 ML IV SCH (16:41)
[2019-11-10] MEDS: MAGNESIUM SULFATE-D5W PMX 1 GM in DEXTROSE/WATER 1 100ML.BAG IVPB SCH ×4 (16:42→22:01)
[2019-11-10] MEDS: POTASSIUM CHLORIDE ER 20 MEQ TAB.ER PO SCH (20:35)
[2019-11-11] MEDS: POTASSIUM CHLORIDE 10 MEQ in WATER FOR INJECTION 1 100ML.BAG IVPB SCH (00:45)
[2019-11-11 06:02] LABS: African American GFR (CKD) >90 (>60 ml/min/1.73 sqM); Anion Gap 8 mmol/L; Blood Urea Nitrogen 5 mg/dL (7-17); Calcium 8.4 mg/dL (8.4-10.2); Carbon Dioxide 28 mmol/L (22-30); Chloride 100 mmol/L (98-107); Magnesium 2.1 mg/dL (1.6-2.3); Non-African American GFR(CKD) >90 (>60 ml/min/1.73 sqM); Phosphorus 3.3 mg/dL (2.5-4.5); Potassium 3.5 mmol/L (3.5-5.1); Sodium 136 mmol/L (137-145)
[2019-11-11] MEDS: 0.9% NACL WITH KCL 20 MEQ/L 1,000 ML IV SCH (07:30)
[2019-11-11] MEDS ORDERED: 1: MVI, ADULT NO.4 WITH VIT K 10 ML, THIAMINE 100 MG, FOLIC ACID 1 MG, POTASSIUM CHLORID IV SCH ×6 (08:00)
[2019-11-11 08:08] VITALS: BP 133/71; PULSE 67; RESP 12; TEMP 98.2
[2019-11-11] MEDS: POTASSIUM CHLORIDE ER 20 MEQ TAB.ER PO SCH (08:29)
[2019-11-11] MEDS ORDERED: POTASSIUM CHLORIDE ER 20 MEQ TAB.ER PO STA (08:51)
[2019-11-11] MEDS ORDERED: levETIRAcetam ORAL SOLN 500 MG/5 ML CUP PO SCH (09:00)
[2019-11-11] MEDS ORDERED: LEVOTHYROXINE 100 MCG TAB PO SCH (09:00)
--- NOTE | 2019-11-11 10:07 | P.DS ---
Providers Date of admission: 11/10/19 14:17 Expected date of discharge: 11/11/19 Attending physician: Esme Hermosillo Primary care physician: Stated None Hospital Course: Natali Desai is a 69-year-old female status post sleeve gastrectomy, 10/06/2019. She is over 1 month out. For the last 3 days, she has intractable nausea and vomiting including difficulty with swallowing. She reports history of bowel obstruction including history of diverticulosis and diverticulitis. She had recent blood work with potassium of less than 3.0 to 2.8 including low magnesium of 1.6. Last week she was doing well. Despite, IV fluid hydration, she still has nausea. She take bumex regularly for swelling of her legs. Patient was admitted to the hospital for IV hydration. She received potassium and magnesium supplementation. Her potassium and magnesium have since improved to normal range. She is stable for discharge home today. She is prescribed K- Dur at the time of discharge. She is to have a BMP drawn in 3 days. Please see EMR for further hospital course details Discharge Diagnosis 1. Morbid obesity due to excess calories 2. Body mass index of 55.8 to 47.1 3. Osteoarthritis and osteonecrosis, left shoulder 4. Fibromyalgia 5. Meningioma, left eye 6. Cataract of both eyes 7. Osteoarthritis of the lower back 8. Teratoma of the spine 9. Osteoarthritis of the hips 10. Osteoarthritis of the knees 11. Gastroesophageal reflux disease 12. Dysphagia 13. Angina 14. Hypertensive heart disease. 15. Obstructive sleep apnea 16. Hypokalemia 17. Hypomagnesia 18. Dehydration 19. History of small bowel obstruction 20. History of diverticulosis with diverticulitis Nurse practitioner note has been reviewed by physician. Signing provider agrees with the documented findings, assessment, and plan of care. Plan - Discharge Summary Discharge Rx Participant: No New Discharge Prescriptions: New Potassium Chloride ER [K-Dur 20] 20 meq PO DAILY #30 tab Continue Levothyroxine Sodium 100 mcg PO DAILY amLODIPine BESYLATE/BENAZEPRIL [amLODIPine BESYLATE/BENAZEPRIL 5-10 MG] 1 cap PO BID Simethicone 40 mg/0.6 ml Drops [Mylicon Drops] 40 mg PO PCHS PRN #30 ml PRN Reason: gas Cyclobenzaprine [Flexeril] 10 mg PO TID PRN PRN Reason: BACK PAIN Omeprazole 20 mg PO DAILY levETIRAcetam [Keppra Oral Solution] 750 mg PO BID Discontinued Potassium 99 mg PO DAILY Discharge Medication List Levothyroxine Sodium 100 mcg PO DAILY 07/30/19 [History] amLODIPine BESYLATE/BENAZEPRIL [amLODIPine BESYLATE/BENAZEPRIL 5-10 MG] 1 cap PO BID 08/01/19 [History] Simethicone 40 mg/0.6 ml Drops [Mylicon Drops] 40 mg PO PCHS PRN #30 ml 10/07/19 [Rx] Cyclobenzaprine [Flexeril] 10 mg PO TID PRN 11/10/19 [History] Omeprazole 20 mg PO DAILY 11/10/19 [History] levETIRAcetam [Keppra Oral Solution] 750 mg PO BID 11/10/19 [History] Potassium Chloride ER [K-Dur 20] 20 meq PO DAILY #30 tab 11/11/19 [Rx] Follow up Appointment(s)/Referral(s): [facility] [NON-STAFF] - 1 Week Ambulatory/Diagnostic Orders: Basic Metabolic Panel [LAB.AMB] Time Frame: 3 Days, Location: None Selected
[2019-11-11 12:59] VITALS: BMI 47.0
== END 2019-11-11 16:30 | disposition home or self-care (01) ==
LOC: 4SSUR 14:17
PROVIDERS: ADMIT Surgery Plastic and Reconstructive Surgery; ATTEND Surgery Plastic and Reconstructive Surgery
DX: E87.6 Hypokalemia (principal); R11.2 Nausea with vomiting, unspecified; R13.10 Dysphagia, unspecified; Z68.42 Body mass index [BMI] 45.0-49.9, adult; E66.01 Morbid (severe) obesity due to excess calories; D32.9 Benign neoplasm of meninges, unspecified; E83.42 Hypomagnesemia; E86.0 Dehydration; G40.909 Epilepsy, unspecified, not intractable, without status epilepticus; G47.33 Obstructive sleep apnea (adult) (pediatric); H26.9 Unspecified cataract; I11.9 Hypertensive heart disease without heart failure; I20.9 Angina pectoris, unspecified; K21.9 Gastro-esophageal reflux disease without esophagitis; M16.0 Bilateral primary osteoarthritis of hip; M17.0 Bilateral primary osteoarthritis of knee; M35.3 Polymyalgia rheumatica; M47.9 Spondylosis, unspecified; M79.7 Fibromyalgia; M87.9 Osteonecrosis, unspecified; M19.012 Primary osteoarthritis, left shoulder; Z79.82 Long term (current) use of aspirin; Z79.890 Hormone replacement therapy; Z90.710 Acquired absence of both cervix and uterus; Z96.651 Presence of right artificial knee joint; Z98.84 Bariatric surgery status; Z90.49 Acquired absence of other specified parts of digestive tract; Z79.899 Other long term (current) drug therapy; Z88.2 Allergy status to sulfonamides; Z88.8 Allergy status to other drugs, medicaments and biological substances; Z80.49 Family history of malignant neoplasm of other genital organs; Z83.79 Family history of other diseases of the digestive system; Z84.89 Family history of other specified conditions; D48.0 Neoplasm of uncertain behavior of bone and articular cartilage; R32 Unspecified urinary incontinence; Z87.19 Personal history of other diseases of the digestive system; Z79.1 Long term (current) use of non-steroidal anti-inflammatories (NSAID); K57.90 Diverticulosis of intestine, part unspecified, without perforation or abscess without bleeding
CPT/HCPCS: 96368; 96365; 96366 ×2; 96375 ×2; 94760; 94762; 80051 ×2; 82310; 82565 ×2; 83735 ×2; 84100; 84520 ×2; 74177; 96361; 96367; 36415; G0378 ×2; G0379; J3411; J3480 ×4; J2405 ×2; J3475; Q9967; 96360

== ENCOUNTER → 2019-11-10 | Outpatient (CLI) | payer MEDICARE, OTHER ==
[~2019-11-10] MED LIST changes: +ONDANSETRON 4 MG/2 ML VIAL IVP ONE; -ONDANSETRON 4 MG/2 ML VIAL IVP STA; +POTASSIUM CHLORIDE 20 MEQ in WATER FOR INJECTION 1 100ML.BAG IVPB STA; -SCOPOLAMINE 1.5MG/72HR PATCH TRANSDERM SCH; +SODIUM CHLORIDE 0.9% 1,000 ML IV ONE
[2019-11-10 10:07] VITALS: BP 167/80; PULSE 97; RESP 16; TEMP 97.5
[2019-11-10] MEDS: SODIUM CHLORIDE 0.9% 1,000 ML IV ONE ×2 (10:15→11:11)
[2019-11-10 10:58] LABS: African American GFR (CKD) >90 (>60 ml/min/1.73 sqM); Anion Gap 15 mmol/L; Blood Urea Nitrogen 9 mg/dL (7-17); Carbon Dioxide 26 mmol/L (22-30); Chloride 96 mmol/L (98-107); Magnesium 1.6 mg/dL (1.6-2.3); Non-African American GFR(CKD) >90 (>60 ml/min/1.73 sqM); Potassium 2.8 mmol/L (3.5-5.1); Sodium 137 mmol/L (137-145)
--- NOTE | 2019-11-10 14:17 | CT ---
EXAMINATION TYPE: CT abdomen pelvis w con DATE OF EXAM: 11/10/2019 COMPARISON: 08/26/2019 HISTORY: Dehydrated, vomiting, recent Bariatric surgery CT DLP: 3684.3 mGycm CONTRAST: CT scan of the abdomen and pelvis is performed with Oral Contrast and with IV Contrast, patient injec shaniqua with 100 and Bariatric prep mL of Isovue 300. FINDINGS: LUNG BASES-: No visible nodule. No infiltrate. LIVER/GB: Cholecystectomy clips in place. No space occupying hepatic lesion. Biliary tree is of no rmal caliber. PANCREAS: No inflammation. No distinct mass. SPLEEN: No splenic enlargement. No lesion seen. ADRENALS: No nodule. No thickening. KIDNEYS/BLADDER: No hydronephrosis. No nephrolithiasis. No distinct renal mass. Urinary bladder g rossly unremarkable. BOWEL: Normal appendix. Normal bowel caliber. No inflammation. GENITAL ORGANS: No gross abnormality. LYMPH NODES: No greater than 1cm abdominal or pelvic lymph nodes are appreciated. AORTA: No significant abnormality. OSSEOUS STRUCTURES: No significant abnormality is seen. OTHER: No significant additional abnormality is seen. IMPRESSION: 1. A few scattered diverticula without evidence of diverticulitis.
== END | disposition home or self-care (01) ==
LOC: PROCWHC3 09:55
PROVIDERS: ATTEND Surgery Plastic and Reconstructive Surgery
DX: K57.90 Diverticulosis of intestine, part unspecified, without perforation or abscess without bleeding (principal); Z88.2 Allergy status to sulfonamides; Z88.5 Allergy status to narcotic agent; E86.0 Dehydration; E83.42 Hypomagnesemia
CPT/HCPCS: 80051; 82565; 83735; 84520; 74177; 96360; 96361; 96367; 96375; 36415; J3480; J2405; Q9967

== ENCOUNTER → 2019-11-14 | Outpatient (CLI) | payer MEDICARE, OTHER ==
[2019-11-14 10:31] LABS: HCT 40.8 % (34.0-46.0); HGB 12.8 gm/dL (11.4-16.0); MCH 27.4 pg (25.0-35.0); MCHC 31.3 g/dL (31.0-37.0); MCV 87.4 fL (80.0-100.0); Mean Platelet Volume 7.3; Platelet Count 266 k/uL (150-450); RBC 4.67 m/uL (3.80-5.40); WBC 7.3 k/uL (3.8-10.6)
[2019-11-14 17:15] LABS: Albumin 3.7 g/dL (3.80-4.90); Albumin/Globulin Ratio 1.85 (1.60-3.17); Anion Gap 14.5 mmol/L (4.00-12.00); Calcium 8.8 mg/dL (8.7-10.3); Carbon Dioxide 26.5 mmol/L (21.6-31.8); Magnesium 1.6 mg/dL (1.5-2.4); Non-African American GFR(CKD) 92.4 (60.0-200.0); Potassium 3.8 mmol/L (3.5-5.5); Total Bilirubin 0.8 mg/dL (0.3-1.2); Total Protein 5.7 g/dL (6.2-8.2)
== END | disposition home or self-care (01) ==
LOC: LABWHC1 09:43
PROVIDERS: ATTEND Surgery Plastic and Reconstructive Surgery
DX: E83.42 Hypomagnesemia (principal); E87.6 Hypokalemia
CPT/HCPCS: 36415; 80053; 83735; 85027

== ENCOUNTER → 2020-03-10 | Outpatient (CLI) | payer MEDICARE, OTHER ==
--- NOTE | 2020-03-10 15:13 | P.PN ---
Subjective Progress Note Date: 03/10/20 DATE OF SERVICE: 03/10/2020 CHIEF COMPLAINT: Status post sleeve gastrectomy HISTORY OF PRESENT ILLNESS: Natali Desai is a 69-year-old female status post sleeve gastrectomy 10/06/2019. She is 6 months out. She is pending gamma ray surgery for her brain. She has lost 84 pounds and is very happy. Her blood pressure is now normal. She can now fit into normal MRI scanner. She has more energy. Her protein intake is low. She reports her kidney is working well. She was in [place] for the winter. She has history of low potassium level. Her joint problems are better with weight loss. She reports inflammation of the hand. She denies gastroesophageal reflux disease. At height of 5 feet 5 inches, her ideal body weight is 149 pounds. Her highest weight is 335 pounds. Her body mass index was 55.9. She comes in 249 pounds from 291 pounds, 4 months ago. She has lost 42 pounds in 4 months. Her BMI is 4 1.6. Her lifetime weight loss is 86 pounds. Percent excess weight loss is 46%. She is 100 pounds overweight. PHYSICAL EXAM: VITAL SIGNS: Height 5 foot 5 inches, weight 249 pounds. BMI 41.6 Vital Signs Temp 98.3 F 03/10/20 15:20 Pulse 76 03/10/20 15:20 Resp 16 03/10/20 15:20 BP 107/67 03/10/20 15:20 Pulse Ox GENERAL: Well-developed in no acute distress. HEENT: No scleral icterus. Extraocular movements grossly intact. Hears conversational speech. No nasal drainage. NECK: Supple without lymphadenopathy. CHEST: Nonlabored respirations with equal bilateral excursions. CARDIOVASCULAR: Distal 2+ pulses. ABDOMEN: Soft nontender and nondistended MUSCULOSKELETAL: No clubbing, cyanosis. Gross strength 5/5 distal lower extremities. NEURO: No focal or lateralizing signs. Cranial nerves 2 through 12 grossly within normal limits. PSYCH: Appropriate affect. Alert and oriented to person, place and time. SKIN: Good skin turgor. Well perfused. ASSESSMENT: 1. Morbid obesity due to excess calories 2. Body mass index of 55.8 to 41.6 3. Osteoarthritis and osteonecrosis, left shoulder 4. Fibromyalgia 5. Meningioma, left eye 6. Cataract of both eyes 7. Osteoarthritis of the lower back 8. Teratoma of the spine 9. Osteoarthritis of the hips 10. Osteoarthritis of the knees 11. Gastroesophageal reflux disease 12. Dysphagia 13. Angina 14. Hypertensive heart disease. 15. Obstructive sleep apnea 16. Vitamin A deficiency 17. Vitamin D deficiency 18. Secondary hyperparathyroidism 19. Iron deficiency anemia 20. Status post sleeve gastrectomy PLAN: 1. Recommend bariatric labs 2. Goal protein intake over 65 grams daily.
[2020-03-10 15:23] VITALS: BP 107/67; PULSE 76; RESP 16; TEMP 98.3; BMI 41.5
== END | disposition home or self-care (01) ==
LOC: BARWHC3 15:00
PROVIDERS: ATTEND Surgery Plastic and Reconstructive Surgery
DX: E66.01 Morbid (severe) obesity due to excess calories (principal); M16.0 Bilateral primary osteoarthritis of hip; M17.0 Bilateral primary osteoarthritis of knee; M79.7 Fibromyalgia; D32.9 Benign neoplasm of meninges, unspecified; H26.9 Unspecified cataract; D48.0 Neoplasm of uncertain behavior of bone and articular cartilage; K21.9 Gastro-esophageal reflux disease without esophagitis; R13.10 Dysphagia, unspecified; I20.9 Angina pectoris, unspecified; I11.9 Hypertensive heart disease without heart failure; G47.33 Obstructive sleep apnea (adult) (pediatric); E50.9 Vitamin A deficiency, unspecified; E55.9 Vitamin D deficiency, unspecified; N25.81 Secondary hyperparathyroidism of renal origin; D50.9 Iron deficiency anemia, unspecified; Z98.84 Bariatric surgery status; Z68.41 Body mass index [BMI] 40.0-44.9, adult
CPT/HCPCS: 97803; G0463; 99211

== ENCOUNTER → 2020-03-25 | Outpatient (CLI) | payer MEDICARE, OTHER ==
[2020-03-25 10:32] LABS: HCT 46.4 % (34.0-46.0); HGB 14.9 gm/dL (11.4-16.0); MCH 27.5 pg (25.0-35.0); MCHC 32.1 g/dL (31.0-37.0); MCV 85.6 fL (80.0-100.0); Platelet Count 277 k/uL (150-450); RBC 5.43 m/uL (3.80-5.40); RDW 12.8 % (11.5-15.5); WBC 7.1 k/uL (3.8-10.6)
[2020-03-25 10:37] LABS: Partial Thromboplastin Time 25.1 sec (22.0-30.0); Prothrombin Time 10.1 sec (9.0-12.0)
[2020-03-25 19:18] LABS: Ferritin 171.9 ng/mL (10.0-291.0)
[2020-03-25 19:21] LABS: Folate, Serum 8.2 ng/mL; Hemoglobin A1C 5.2 % (4.0-6.0)
[2020-03-25 19:25] LABS: % Iron Saturation 10.09 (12.00-45.00); ALT <8 U/L (8-44); AST 19 U/L (13-35); African American GFR (CKD) 101.7 (60.0-200.0); Albumin/Globulin Ratio 1.76 (1.60-3.17); Alkaline Phosphatase 82 U/L (41-126); BUN/Creat Ratio 17.14 Ratio (12.00-20.00); Carbon Dioxide 30.7 mmol/L (21.6-31.8); Chloride 97 mmol/L (96-109); Chol/HDL Ratio 3.92; Cholesterol 204 mg/dL (0-200); Globulin 2.5 g/dL (1.6-3.3); Glucose 96 mg/dL (70-110); Iron 35 ug/dL (50-170); LDL Cholesterol,Calculated 135.8 mg/dL (0.0-131.0); Magnesium 1.8 mg/dL (1.5-2.4); Non-African American GFR(CKD) 87.8 (60.0-200.0); Phosphorus 3.6 mg/dL (2.4-5.1); Potassium 3.1 mmol/L (3.5-5.5); Sodium 140 mmol/L (135-145); Total Bilirubin 1.2 mg/dL (0.3-1.2); Total Iron Binding Capacity 347 ug/dL (228-460); Total Protein 6.9 g/dL (6.2-8.2)
[2020-03-26 13:06] LABS: Zinc, Serum 51 ug/dL (60-130)
[2020-03-29 07:17] LABS: Vitamin A 19 ug/dL (38-106)
[2020-03-29 07:59] LABS: Vit B1(Thiamine) 49 ug/L (38-122)
[2020-03-31 19:08] LABS: Selenium 66 mcg/L (63-160)
== END | disposition home or self-care (01) ==
LOC: LABWHC1 09:44
PROVIDERS: ATTEND Surgery Plastic and Reconstructive Surgery
DX: E21.1 Secondary hyperparathyroidism, not elsewhere classified (principal); E89.1 Postprocedural hypoinsulinemia; D50.9 Iron deficiency anemia, unspecified; K90.9 Intestinal malabsorption, unspecified; E55.9 Vitamin D deficiency, unspecified; K74.1 Hepatic sclerosis; N19 Unspecified kidney failure; K50.90 Crohn's disease, unspecified, without complications; E66.01 Morbid (severe) obesity due to excess calories
CPT/HCPCS: 36415; 80053; 80061; 82306; 82525; 82607; 82728; 82746; 83036; 83540; 83550; 83735; 83970; 84100; 84134; 84255; 84425; 84443; 84590; 84630; 85027; 85610; 85730

== ENCOUNTER → 2020-06-16 | Outpatient (CLI) | payer MEDICARE, OTHER ==
[2020-06-16 12:57] LABS: HCT 42.8 % (34.0-46.0); HGB 13.8 gm/dL (11.4-16.0); MCH 27.9 pg (25.0-35.0); MCHC 32.3 g/dL (31.0-37.0); MCV 86.5 fL (80.0-100.0); Platelet Count 272 k/uL (150-450); RBC 4.95 m/uL (3.80-5.40); RDW 13.6 % (11.5-15.5); WBC 7.5 k/uL (3.8-10.6)
[2020-06-16 19:47] LABS: Folate, Serum 7.9 ng/mL
[2020-06-16 20:29] LABS: % Iron Saturation 12.46 (12.00-45.00); ALT <8 U/L (8-44); AST 16 U/L (13-35); African American GFR (CKD) 86.6 (60.0-200.0); Albumin/Globulin Ratio 1.68 (1.60-3.17); Alkaline Phosphatase 86 U/L (41-126); BUN/Creat Ratio 16.25 Ratio (12.00-20.00); Calcium 9.6 mg/dL (8.7-10.3); Carbon Dioxide 34.3 mmol/L (21.6-31.8); Chloride 99 mmol/L (96-109); Chol/HDL Ratio 3.91; Cholesterol 223 mg/dL (0-200); Globulin 2.5 g/dL (1.6-3.3); Glucose 94 mg/dL (70-110); Iron 41 ug/dL (50-170); LDL Cholesterol,Calculated 148.6 mg/dL (0.0-131.0); Magnesium 1.9 mg/dL (1.5-2.4); Non-African American GFR(CKD) 74.7 (60.0-200.0); Phosphorus 3.9 mg/dL (2.4-5.1); Potassium 4.1 mmol/L (3.5-5.5); Sodium 141 mmol/L (135-145); Total Bilirubin 0.8 mg/dL (0.3-1.2); Total Iron Binding Capacity 329 ug/dL (228-460); Total Protein 6.7 g/dL (6.2-8.2)
[2020-06-16 21:25] LABS: INR 0.98 (0.90-1.11); Partial Thromboplastin Time 30.8 sec (24.7-29.9); Prothrombin Time 10.5 sec (9.9-11.9)
[2020-06-16 22:21] LABS: Hemoglobin A1C 5.2 % (4.0-6.0)
[2020-06-17 13:15] LABS: Zinc, Serum 66 ug/dL (60-130)
== END | disposition home or self-care (01) ==
LOC: LABWHC1 11:14
PROVIDERS: ATTEND Surgery Plastic and Reconstructive Surgery
DX: E66.01 Morbid (severe) obesity due to excess calories (principal); E89.1 Postprocedural hypoinsulinemia; E55.9 Vitamin D deficiency, unspecified; D50.8 Other iron deficiency anemias; K90.89 Other intestinal malabsorption; K74.1 Hepatic sclerosis; K50.90 Crohn's disease, unspecified, without complications; N19 Unspecified kidney failure
CPT/HCPCS: 36415; 80053; 80061; 82306; 82525; 82607; 82728; 82746; 83036; 83540; 83550; 83735; 83970; 84100; 84134; 84255; 84425; 84443; 84590; 84630; 85027; 85610; 85730

== ENCOUNTER → 2020-06-18 | Outpatient (CLI) | payer MEDICARE, OTHER ==
--- NOTE | 2020-06-21 10:01 | MM ---
Reason for exam: screening (asymptomatic). Last mammogram was performed 1 year ago. History: Patient is postmenopausal. Family history of breast cancer in cousin. Took estrogen for 4 years 4 months. Physical Findings: A clinical breast exam by your physician is recommended on an annual basis and results should be correlated with mammographic findings. MG 3D Screening Mammo W/Cad Bilateral CC and MLO view(s) were taken. Prior study comparison: June 17, 2019, bilateral MG 3d screening mammo w/cad. February 27, 2017, bilateral MG 3d screening mammo w/cad. There are scattered fibroglandular densities. There is no discrete abnormality. No significant changes when compared with prior studies. ASSESSMENT: Negative, BI-RAD 1 RECOMMENDATION: Routine screening mammogram of both breasts in 1 year.
== END | disposition home or self-care (01) ==
LOC: RADMAMWWP 13:57
PROVIDERS: ATTEND Internal Medicine Geriatric Medicine
DX: Z12.31 Encounter for screening mammogram for malignant neoplasm of breast (principal)
CPT/HCPCS: 77063; 77067

== ENCOUNTER → 2021-03-22 | Outpatient (CLI) | payer MEDICARE, OTHER ==
--- NOTE | 2021-03-22 14:52 | US ---
EXAMINATION TYPE: US thyroid st tissue head/neck DATE OF EXAM: 03/22/2021 COMPARISON: NONE CLINICAL HISTORY: E04.1 thyroid nodule. GLAND SIZE: Right Lobe: 2.4 x 1.2 x 1.2 cm Overall Parenchyma: heterogenous Left Lobe: 3.0 x 1.2 x 1.2 cm Overall Parenchyma: heterogeneous Isthmus Thickness: 0.3 cm NODULES RIGHT: # of nodules measured on right: 0 LEFT: # of nodules measured on left: 0 ISTHMUS: # of nodules measured in the isthmus: 0 Bilateral neck scanned, no evidence of lymphadenopathy. IMPRESSION: Heterogeneous thyroid without focal solid nodule seen. 2017 ACR TI-RADS LEVEL: TR-RADS 1 - BENIGN: No FNA *Highest TI-RADS level nodule reported
== END | disposition home or self-care (01) ==
LOC: RADUSWWP 13:45
PROVIDERS: ATTEND Internal Medicine Geriatric Medicine
DX: E07.89 Other specified disorders of thyroid (principal)
CPT/HCPCS: 76536

== ENCOUNTER → 2021-04-20 | Outpatient (CLI) | payer MEDICARE, OTHER ==
[2021-04-20 17:37] VITALS: BP 185/77; PULSE 60; RESP 18; TEMP 98; BMI 43.9
--- NOTE | 2021-04-20 17:59 | P.PN ---
Subjective Progress Note Date: 04/20/21 She return from [place]. She has gained weight. She is over 1 year. She has a large pannus. Her is alive. Recommend labs. She had gamma ray knife of the brain. She has inflammation of the brain. She was down to 226 pounds and was ill. She had seen an machine design teacher. Recommend labs for inflammation. Objective - Vital Signs Vital signs: Vital Signs Temp 98.0 F 04/20/21 17:22 Pulse 60 04/20/21 17:22 Resp 18 04/20/21 17:22 BP 185/77 04/20/21 17:22 Pulse Ox Intake & Output 04/19/21 04/20/21 04/20/21 18:59 06:59 18:59 Weight 119.748 kg
== END | disposition home or self-care (01) ==
LOC: BARWHC3 15:38
PROVIDERS: ATTEND Surgery Plastic and Reconstructive Surgery
DX: E66.01 Morbid (severe) obesity due to excess calories (principal); Z68.41 Body mass index [BMI] 40.0-44.9, adult
CPT/HCPCS: 99211

== ENCOUNTER → 2021-04-22 | Outpatient (CLI) | payer MEDICARE, OTHER ==
[2021-04-22 09:18] LABS: Prothrombin Time 10.5 sec (9.0-12.0)
[2021-04-22 15:14] LABS: HCT 41.8 % (37.2-46.3); HGB 13.4 g/dL (12.0-15.0); MCH 28.3 pg (27.0-32.0); MCHC 32.1 g/dL (32.0-37.0); MCV 88.2 fL (80.0-97.0); Mean Platelet Volume 10.1 fL (9.5-12.2); Platelet Count 268 X 10*3/uL (140-440); RBC 4.74 X 10*6/uL (4.10-5.20); WBC 7.91 X 10*3/uL (4.50-10.00)
[2021-04-22 23:02] LABS: Anion Gap 11.6 mmol/L (4.00-12.00); BUN/Creat Ratio 32.86 Ratio (12.00-20.00); Carbon Dioxide 27.4 mmol/L (21.6-31.8); Chol/HDL Ratio 3.03; LDL Cholesterol,Calculated 123.2 mg/dL (0.0-131.0); Phosphorus 3.7 mg/dL (2.4-5.1); Potassium 4.1 mmol/L (3.5-5.5); VLDL Calculation 10.8 mg/dL (5.00-40.00)
[2021-04-22 23:03] LABS: % Iron Saturation 17.66 (12.00-45.00); Albumin 4.3 g/dL (3.80-4.90); Albumin/Globulin Ratio 1.65 (1.60-3.17); Globulin 2.6 g/dL (1.6-3.3); Magnesium 1.9 mg/dL (1.5-2.4); Non-African American GFR(CKD) 87.2 (60.0-200.0); Total Bilirubin 0.7 mg/dL (0.3-1.2); Total Protein 6.9 g/dL (6.2-8.2)
[2021-04-22 23:11] LABS: Ferritin 68.3 ng/mL (10.0-291.0)
[2021-04-22 23:12] LABS: Folate, Serum 7.1 ng/mL
== END | disposition home or self-care (01) ==
LOC: LABWHC1 08:21
PROVIDERS: ATTEND Surgery Plastic and Reconstructive Surgery
DX: N19 Unspecified kidney failure (principal); E89.1 Postprocedural hypoinsulinemia; E66.01 Morbid (severe) obesity due to excess calories; E55.9 Vitamin D deficiency, unspecified; D50.8 Other iron deficiency anemias; K90.89 Other intestinal malabsorption; K74.1 Hepatic sclerosis; K50.90 Crohn's disease, unspecified, without complications
CPT/HCPCS: 36415; 80053; 80061; 82306; 82525; 82607; 82728; 82746; 83036; 83540; 83550; 83735; 83970; 84100; 84134; 84255; 84425; 84443; 84590; 84630; 85027; 85610; 85730

== ENCOUNTER → 2021-05-11 | Outpatient (CLI) | payer MEDICARE, OTHER ==
[2021-05-11 15:24] VITALS: BP 140/75; PULSE 62; RESP 18; TEMP 98.1; BMI 43.4
--- NOTE | 2021-05-11 15:51 | P.PN ---
Subjective Progress Note Date: 05/11/21 Labs reviewed. Alternative supplements for vitamins, NOW brand. TSH is 1.7. Goal to be 1.0 or less. Increased to 125 mcg. Follow-up in 1 month. Objective - Vital Signs Vital signs: Vital Signs Temp 98.1 F 05/11/21 15:21 Pulse 62 05/11/21 15:21 Resp 18 05/11/21 15:21 BP 140/75 05/11/21 15:21 Pulse Ox Intake & Output 05/10/21 05/11/21 05/11/21 18:59 06:59 18:59 Weight 118.388 kg
== END | disposition home or self-care (01) ==
LOC: BARWHC3 14:49
PROVIDERS: ATTEND Surgery Plastic and Reconstructive Surgery
DX: E66.01 Morbid (severe) obesity due to excess calories (principal); G43.909 Migraine, unspecified, not intractable, without status migrainosus; Z68.41 Body mass index [BMI] 40.0-44.9, adult
CPT/HCPCS: 99211

== ENCOUNTER → 2021-06-20 | Outpatient (CLI) | payer MEDICARE, OTHER | END | disposition home or self-care (01) | LOC: LABWHC1 11:15 | PROVIDERS: ATTEND Surgery Plastic and Reconstructive Surgery | DX: E03.9 Hypothyroidism, unspecified (principal) | CPT/HCPCS: 36415; 84443 ==

== ENCOUNTER → 2023-07-31 | Outpatient (CLI) | payer MEDICARE, OTHER ==
--- NOTE | 2023-08-01 09:00 | MM ---
Reason for Exam: Screening (asymptomatic). Last mammogram was performed 1 year(s) and 2 month(s) ago. Patient History: Menarche at age 8. First Full-Term at age 21. Left ovary removed at age 51. Right ovary removed at age 51. Hysterectomy at age 26. Postmenopausal. Estrogen for 4 years, 4 months. Maternal cousin had breast cancer. Niece had breast cancer. Risk Values: Katarzyna 5 year model risk: 1.7%. NCI Lifetime model risk: 4.3%. Prior Study Comparison: 06/17/2019 Bilateral Screening Mammogram, [facility]. 06/18/2020 Bilateral Screening Mammogram, [facility]. 05/30/2022 Bilateral MG 3D screening mammo w/cad, [facility]. Tissue Density: The breast tissue is almost entirely fat. Findings: Analyzed By CAD. There is no suspicious group of microcalcifications or new suspicious mass in either breast. Overall Assessment: Negative, BI-RAD 1 Management: Screening Mammogram of both breasts in 1 year. . Patient should continue monthly self-breast exams. A clinical breast exam by your physician is recommended on an annual basis. This exam should not preclude additional follow-up of suspicious palpable abnormalities. Note on Katarzyna scores and lifetime risk: 1. A Katarzyna score greater than 3% is considered moderate risk. If this is the case, consider specialist referral to assess eligibility for a risk reducing agent. 2. If overall lifetime risk for the development of breast cancer is 20% or higher, the patient may qualify for future screening with alternating mammogram and breast MRI. Electronically signed and approved by: Thomas Hurtado M.D. Radiologis
== END | disposition home or self-care (01) ==
LOC: RADMAMWWP 13:33
PROVIDERS: ATTEND Internal Medicine Geriatric Medicine
DX: Z12.31 Encounter for screening mammogram for malignant neoplasm of breast (principal); Z78.0 Asymptomatic menopausal state; Z80.3 Family history of malignant neoplasm of breast
CPT/HCPCS: 77063; 77067

== ENCOUNTER → 2024-02-20 | Outpatient (CLI) | payer MEDICARE, OTHER ==
[2024-02-20 14:42] LABS: Basophils # (A) 0.06 X 10*3/uL (0.00-0.10); Basophils % (A) 0.8 %; Eosinophils # (A) 0.37 X 10*3/uL (0.04-0.35); Eosinophils % (A) 5.2 %; HCT 43.2 % (37.2-46.3); HGB 13.7 g/dL (12.0-15.0); Lymphocytes # (A) 1.82 X 10*3/uL (0.90-5.00); Lymphocytes % (A) 25.7 %; MCH 27.1 pg (27.0-32.0); MCHC 31.7 g/dL (32.0-37.0); MCV 85.4 FL (80.0-97.0); Mean Platelet Volume 9.6 FL (9.5-12.2); Monocytes # (A) 0.63 X 10*3/uL (0.20-1.00); Monocytes % (A) 8.9 %; NRBC Per 100 WBC 0 X 10*3/uL (0.00-0.01); Neutrophils # (A) 4.17 X 10*3/uL (1.80-7.70); Neutrophils % (A) 59.1 %; Platelet Count 266 X 10*3/uL (140-440); RBC 5.06 X 10*6/uL (4.10-5.20); RDW 13.2 % (11.5-14.5); WBC 7.07 X 10*3/uL (4.50-10.00)
[2024-02-20 15:03] LABS: ALT 24 U/L (8-44); AST 32 U/L (13-35); Albumin 4.4 g/dL (3.8-4.9); Albumin/Globulin Ratio 1.57 Ratio (1.60-3.17); Alkaline Phosphatase 86 U/L (41-126); BUN/Creat Ratio 16.75 Ratio (12.00-20.00); Blood Urea Nitrogen 13.4 mg/dL (9.0-27.0); Calcium 9.5 mg/dL (8.7-10.3); Carbon Dioxide 29.7 mmol/L (21.6-31.8); Chloride 102 mmol/L (96-109); Chol/HDL Ratio 3.59 Ratio; Globulin 2.8 g/dL (1.6-3.3); Glucose 98 mg/dL (70-110); LDL Cholesterol,Calculated 140.1 mg/dL (0.0-131.0); Potassium 3.7 mmol/L (3.5-5.5); Sodium 144 mmol/L (135-145); T4, Free (Free Thyroxine) 1.91 ng/dL (0.80-1.80); Total Bilirubin 0.5 mg/dL (0.3-1.2); Total Protein 7.2 g/dL (6.2-8.2); VLDL Calculation 15.72 mg/dL (5.00-40.00)
== END | disposition home or self-care (01) ==
LOC: LABWHC1 09:46
PROVIDERS: ATTEND Internal Medicine Geriatric Medicine
DX: H57.813 Brow ptosis, bilateral (principal); E78.2 Mixed hyperlipidemia; E03.9 Hypothyroidism, unspecified; G70.01 Myasthenia gravis with (acute) exacerbation
CPT/HCPCS: 36415; 80053; 80061; 84439; 84443; 85025; 86041

== ENCOUNTER → 2024-04-09 | Outpatient (CLI) | payer MEDICARE, OTHER ==
--- NOTE | 2024-04-09 11:13 | US ---
EXAMINATION TYPE: US venous doppler duplex LE LT DATE OF EXAM: 04/09/2024 10:28 AM COMPARISON: NONE CLINICAL INDICATION: Female, 73 years old with history of M79.605 PAIN IN L LEG; leg pain x several w eeks SIDE PERFORMED: Left TECHNIQUE: The lower extremity deep venous system is examined utilizing real time linear array sonog mindy with graded compression, doppler sonography and color-flow sonography. VESSELS IMAGED: Common Femoral Vein Deep Femoral Vein Greater Saphenous Vein * Femoral Vein Popliteal Vein Small Saphenous Vein * Proximal Calf Veins (* superficial vessels) Grayscale, color doppler, spectral doppler imaging performed of the deep veins of the left lower extr emity. There is normal flow, compressibility, vascular waveforms. Left Leg: Negative for DVT as best visualized exam limited by large body habitus IMPRESSION: Limited examination due to patient's body habitus without visualized deep venous thrombosis of the le ft lower extremity.
== END | disposition home or self-care (01) ==
LOC: RADUSWWP 09:58
PROVIDERS: ATTEND Internal Medicine
DX: M79.605 Pain in left leg (principal)

== ENCOUNTER 2024-07-07 06:53 | Day surgery (SDC) | payer MEDICARE, OTHER ==
[2024-07-03 12:21] VITALS: BMI 46.5
--- NOTE | 2024-07-07 05:31 | P.GSHP ---
History of Present Illness H&P Date: 07/07/24 CHIEF COMPLAINT: Colon screen HISTORY OF PRESENT ILLNESS: The patient is a 73-year-old female who presents for colon screen. Lower endoscopy was offered for further evaluation and management. PAST MEDICAL HISTORY: Please see list. PAST SURGICAL HISTORY: Please see list. MEDICATIONS: Please see list. ALLERGIES: Please see list. SOCIAL HISTORY: No illicit drug use FAMILY HISTORY: No reports of Crohn disease or ulcerative colitis. REVIEW OF ORGAN SYSTEMS: CONSTITUTIONAL: No reports of fevers or chills. PHYSICAL EXAM: VITAL SIGNS: Stable GENERAL: Well-developed pleasant in no acute distress. HEENT: No scleral icterus. Extraocular movements grossly intact. Moist buccal mucosa. NECK: Supple without lymphadenopathy. CHEST: Unlabored respirations. Equal bilateral excursions. CARDIOVASCULAR: Regular rate and rhythm. Distal 2+ pulses. ABDOMEN: Soft, nontender, nondistended. MUSCULOSKELETAL: No clubbing, cyanosis, or edema. ASSESSMENT: 1. Colon screen. PLAN: 1. Recommend proceeding with a lower endoscopy Past Medical History Past Medical History: Eye Disorder, GERD/Reflux, Hyperlipidemia, Hypertension, Seizure Disorder, Sleep Apnea/CPAP/BIPAP, Thyroid Disorder Additional Past Medical History / Comment(s): Left shoulder limited mobility and pain, bilateral knee and back pain. LAST SEIZURE 2013. BENIGN NEOPLASM OF MENANGIOMA(BRAIN TUMOR DIAGNOSED 08/20/19). Trying to get a Sleep Apnea machine. Leaky valve. POLYMYALGIA RHEUMATICA. HX LOW IRON. URINARY INCONTINENCE - WEARS PADS. Hx vertigo post cataract surgery. "Cholesterol tad high." Migraines. "Eye muscles not working properly and sensitive to light." History of Any Multi-Drug Resistant Organisms: None Reported Past Surgical History: Back Surgery, Bariatric Surgery, Cholecystectomy, Heart Catheterization, Hysterectomy, Joint Replacement Additional Past Surgical History / Comment(s): MULTIPLE D&C'S, right total knee replacement, HEMORRHOIDS, LAMINECTOMY X2, HEART CATH X3, COLONOSCOPY, EGD, sleeve gastrectomy 10-06-19, bilateral cataract surgery. Past Anesthesia/Blood Transfusion Reactions: Previous Problems w/ Anesthesia, Family History of Problems w/ Anesthesia Additional Past Anesthesia/Blood Transfusion Reaction / Comment(s): REACTION TO STADOL-CONFUSION, HALLUCINATIONS. Sister - throat swelled shut. Brother - analpylactic allergy to plastics. Past Psychological History: No Psychological Hx Reported Smoking Status: Never smoker Past Alcohol Use History: None Reported Past Drug Use History: None Reported - Past Family History Mother Family Medical History: No Reported History Daughter(s) Family Medical History: Cancer Additional Family Medical History / Comment(s): Adenocarcinoma. Sister(s) Family Medical History: Cancer, Deep Vein Thrombosis (DVT) Additional Family Medical History / Comment(s): Skin cancer. Medications and Allergies Home Medications Medication Instructions Recorded Confirmed Type hydroCHLOROthiazide 12.5 mg PO HS 03/10/20 07/03/24 History diazePAM [Valium] 5 mg PO DIRECTED PRN 05/07/20 07/03/24 History levETIRAcetam [Keppra] 500 mg PO BID 05/07/20 07/03/24 History Omeprazole [PriLOSEC] 40 mg PO DAILY 04/20/21 07/03/24 History Piroxicam [Feldene] 20 mg PO DAILY 04/20/21 07/03/24 History Levothyroxine Sodium [Synthroid] 125 mcg PO DAILY #90 tab 06/22/21 07/03/24 Rx Acetaminophen [Tylenol Arthritis] 650 mg PO Q8H PRN 06/17/24 07/03/24 History Potassium Gluconate 99 mg PO DAILY 06/17/24 07/03/24 History Verapamil HCl [Verapamil Sr] 120 mg PO HS 06/17/24 07/03/24 History dilTIAZem HCL [Cardizem] 120 mg PO BID 06/17/24 07/03/24 History Allergies Allergy/AdvReac Type Severity Reaction Status Date / Time [id number] Reductase AdvReac Mild Unknown Verified 07/03/24 12:16 Inhibitor
[2024-07-07] MEDS: IV FLUID CONTINUATION 1,000 ML IV ONE (07:15)
[2024-07-07 07:21] VITALS: TEMP 97.6
[2024-07-07] MEDS ORDERED: PROPOFOL 10 MG/ML 20 ML VIAL IV ONE (07:58)
[2024-07-07] MEDS: IV FLUID CONTINUATION 650 ML IV ONE (08:13)
--- NOTE | 2024-07-07 08:20 | P.PCN ---
Date of Procedure: 07/07/24 Description of Procedure: PREOPERATIVE DIAGNOSIS: Colonoscopy screening. POSTOPERATIVE DIAGNOSIS: Poor prep OPERATION: Colonoscopy to the sigmoid colon obstructed due to solid stool. SURGEON: Esme Hermosillo MD. ANESTHESIA: MAC. INDICATIONS: The patient is a 73-year-old female who presents for colonoscopy screening. Her last colonoscopy was more than 5 years ago. Benefits and risks were described and informed consent was obtained. DESCRIPTION OF PROCEDURE: The patient had undergone GoLytely prep. She had been brought into the operating room and laid in the left lateral decubitus position. After adequate intravenous sedation, the rectum was examined with 2% lidocaine jelly. External hemorrhoids were encountered. The rectal tone was within normal limits. An Olympus colonoscope was advanced along the rectum however moderate retained semisolid stool was found as the scope was passed to 30 cm from the anal verge. Due to the moderate retained solid stool, procedure was terminated. The patient had tolerated the procedure well. FINDINGS: [place] preparation quality scale 5 (1-5) Nondiagnostic attempted colonoscopy due to semisolid stool RECOMMENDATIONS: Recommend 48-hour prep for appropriate cleanse. As procedure is nondiagnostic, still will need colonoscopy Plan - Discharge Summary Discharge Rx Participant: No New Discharge Prescriptions: Continue hydroCHLOROthiazide 12.5 mg PO HS levETIRAcetam [Keppra] 500 mg PO BID diazePAM [Valium] 5 mg PO DIRECTED PRN PRN Reason: Anxiety Omeprazole [PriLOSEC] 40 mg PO DAILY Levothyroxine Sodium [Synthroid] 125 mcg PO DAILY #90 tab dilTIAZem HCL [Cardizem] 120 mg PO BID Piroxicam [Feldene] 20 mg PO DAILY Verapamil HCl [Verapamil Sr] 120 mg PO HS Acetaminophen [Tylenol Arthritis] 650 mg PO Q8H PRN PRN Reason: Pain Potassium Gluconate 99 mg PO DAILY Discharge Medication List hydroCHLOROthiazide 12.5 mg PO HS 03/10/20 [History] diazePAM [Valium] 5 mg PO DIRECTED PRN 05/07/20 [History] levETIRAcetam [Keppra] 500 mg PO BID 05/07/20 [History] Omeprazole [PriLOSEC] 40 mg PO DAILY 04/20/21 [History] Piroxicam [Feldene] 20 mg PO DAILY 04/20/21 [History] Levothyroxine Sodium [Synthroid] 125 mcg PO DAILY #90 tab 06/22/21 [Rx] Acetaminophen [Tylenol Arthritis] 650 mg PO Q8H PRN 06/17/24 [History] Potassium Gluconate 99 mg PO DAILY 06/17/24 [History] Verapamil HCl [Verapamil Sr] 120 mg PO HS 06/17/24 [History] dilTIAZem HCL [Cardizem] 120 mg PO BID 06/17/24 [History] Follow up Appointment(s)/Ref[facility] [place] [facility] - [facility]24 Patient Instructions/Handouts: Constipation (DC) Discharge Disposition: HOME SELF-CARE
[2024-07-07] MEDS ORDERED: LIDOCAINE 1% (10MG/ML) FOR IV START INTRADERMA PRN (08:26)
[2024-07-07] MEDS ORDERED: LACTATED RINGERS 1,000 ML IV SCH (08:26)
[2024-07-07 08:36] VITALS: BP 133/74; PULSE 61; RESP 20
== END 2024-07-07 09:30 | disposition home or self-care (01) ==
LOC: ORWHC2ENDO 06:53
PROVIDERS: ATTEND Surgery Plastic and Reconstructive Surgery
DX: Z12.11 Encounter for screening for malignant neoplasm of colon

== ENCOUNTER 2024-07-09 10:48 | Day surgery (SDC) | payer MEDICARE, OTHER ==
--- NOTE | 2024-07-09 08:17 | P.GSHP ---
History of Present Illness H&P Date: 07/09/24 CHIEF COMPLAINT: Colon screen HISTORY OF PRESENT ILLNESS: The patient is a 73-year-old female who presents for colon screen. Lower endoscopy was offered for further evaluation and management. PAST MEDICAL HISTORY: Please see list. PAST SURGICAL HISTORY: Please see list. MEDICATIONS: Please see list. ALLERGIES: Please see list. SOCIAL HISTORY: No illicit drug use FAMILY HISTORY: No reports of Crohn disease or ulcerative colitis. REVIEW OF ORGAN SYSTEMS: CONSTITUTIONAL: No reports of fevers or chills. PHYSICAL EXAM: VITAL SIGNS: Stable GENERAL: Well-developed pleasant in no acute distress. HEENT: No scleral icterus. Extraocular movements grossly intact. Moist buccal mucosa. NECK: Supple without lymphadenopathy. CHEST: Unlabored respirations. Equal bilateral excursions. CARDIOVASCULAR: Regular rate and rhythm. Distal 2+ pulses. ABDOMEN: Soft, nontender, nondistended. MUSCULOSKELETAL: No clubbing, cyanosis, or edema. ASSESSMENT: 1. Colon screen. PLAN: 1. Recommend proceeding with a lower endoscopy Past Medical History Past Medical History: Eye Disorder, GERD/Reflux, Hyperlipidemia, Hypertension, Seizure Disorder, Sleep Apnea/CPAP/BIPAP, Thyroid Disorder Additional Past Medical History / Comment(s): Left shoulder limited mobility and pain, bilateral knee and back pain. LAST SEIZURE 2013. BENIGN NEOPLASM OF MENANGIOMA(BRAIN TUMOR DIAGNOSED 08/20/19). Trying to get a Sleep Apnea machine. Leaky valve. POLYMYALGIA RHEUMATICA. HX LOW IRON. URINARY INCONTINENCE - WEARS PADS. Hx vertigo post cataract surgery. "Cholesterol tad high." Migraines. "Eye muscles not working properly and sensitive to light." coming back tomorrow for repeat colonoscopy because wasn't cleaned out well enough per pt. History of Any Multi-Drug Resistant Organisms: None Reported Past Surgical History: Back Surgery, Bariatric Surgery, Cholecystectomy, Heart Catheterization, Hysterectomy, Joint Replacement Additional Past Surgical History / Comment(s): MULTIPLE D&C'S, right total knee replacement, HEMORRHOIDS, LAMINECTOMY X2, HEART CATH X3, COLONOSCOPY, EGD, sleeve gastrectomy 10-06-19, bilateral cataract surgery. colonoscopy 07/07/24 Past Anesthesia/Blood Transfusion Reactions: Previous Problems w/ Anesthesia, Family History of Problems w/ Anesthesia Additional Past Anesthesia/Blood Transfusion Reaction / Comment(s): REACTION TO STADOL-CONFUSION, HALLUCINATIONS. Sister - throat swelled shut. Brother - anaphylactic allergy to plastics. Smoking Status: Never smoker - Past Family History Mother Family Medical History: No Reported History Daughter(s) Family Medical History: Cancer Additional Family Medical History / Comment(s): Adenocarcinoma. Sister(s) Family Medical History: Cancer, Deep Vein Thrombosis (DVT) Additional Family Medical History / Comment(s): Skin cancer. Medications and Allergies Home Medications Medication Instructions Recorded Confirmed Type hydroCHLOROthiazide 12.5 mg PO HS 03/10/20 07/08/24 History diazePAM [Valium] 5 mg PO DIRECTED PRN 05/07/20 07/08/24 History levETIRAcetam [Keppra] 500 mg PO BID 05/07/20 07/08/24 History Omeprazole [PriLOSEC] 40 mg PO DAILY 04/20/21 07/08/24 History Piroxicam [Feldene] 20 mg PO DAILY 04/20/21 07/08/24 History Levothyroxine Sodium [Synthroid] 125 mcg PO DAILY #90 tab 06/22/21 07/08/24 Rx Acetaminophen [Tylenol Arthritis] 650 mg PO Q8H PRN 06/17/24 07/08/24 History Potassium Gluconate 99 mg PO MOWEFR 06/17/24 07/08/24 History Verapamil HCl [Verapamil Sr] 120 mg PO HS 06/17/24 07/08/24 History dilTIAZem HCL [Cardizem] 120 mg PO BID 06/17/24 07/08/24 History Allergies Allergy/AdvReac Type Severity Reaction Status Date / Time [id number] Reductase AdvReac Mild Unknown Verified 07/09/24 07:17 Inhibitor
[2024-07-09] MEDS: IV FLUID CONTINUATION 1,000 ML IV ONE (11:57)
[2024-07-09 12:06] VITALS: TEMP 98.5
[2024-07-09] MEDS: LACTATED RINGERS 1,000 ML IV SCH (12:17)
[2024-07-09] MEDS ORDERED: PROPOFOL 10 MG/ML 20 ML VIAL IV ONE (12:46)
[2024-07-09 13:30] VITALS: RESP 16
[2024-07-09 13:44] VITALS: BP 156/62; PULSE 60
--- NOTE | 2024-07-09 14:06 | P.PCN ---
Date of Procedure: 07/09/24 Description of Procedure: PREOPERATIVE DIAGNOSIS: Colonoscopy screening. Change in bowel habits Poor bowel prep history Chronic constipation Bilateral upper abdominal pain POSTOPERATIVE DIAGNOSIS: Severe sigmoid diverticulosis with partial obstruction OPERATION: Colonoscopy to the cecum, ileocecal valve SURGEON: Esme Hermosillo MD. ANESTHESIA: MAC. INDICATIONS: The patient is a 73-year-old female who 48 hours ago/2 days ago presented for colonoscopy assessment however due to severe retained stool, she was placed on a 2-day liquid diet with presentation for colon except assessment today. Benefits and risks were described and informed consent was obtained. DESCRIPTION OF PROCEDURE: The patient had undergone prior GoLytely prep including over 2-day liquid diet prep. The patient had been brought into the operating room and laid in the left lateral decubitus position. After adequate intravenous sedation, the rectum was examined with 2% lidocaine jelly. No external hemorrhoids were encountered. The rectal tone was within normal limits. No lesions were palpated in the rectal vault. The sigmoid colon was highly redundant requiring abdominal wall pressure. An Olympus colonoscope was advanced until the cecum, ileocecal valve viewed. The prep was good. Severe sigmoid diverticulosis with redundancy and partial obstruction was identified at the descending colon with scattered diverticulosis was encountered. No colonic polyps were found. No evidence of focal colitis was found. Retroflexion of the scope demonstrated grade 2 internal hemorrhoids without active bleeding or inflammation. The colon was desufflated. The patient had tolerated the procedure well. Withdrawal time was over 6 minutes. FINDINGS: [place] preparation quality scale 1+ (1-5) Internal hemorrhoids, grade 1 No external prolapsed hemorrhoids. No arteriovenous malformations. No adenomatous polyps. No focal colitis. Severe sigmoid diverticulosis with redundancy and partial obstruction of the descending colon RECOMMENDATIONS: May benefit from partial colectomy due to symptomatic severe sigmoid diverti culosis with partial obstruction Plan - Discharge Summary Discharge Rx Participant: No New Discharge Prescriptions: Continue hydroCHLOROthiazide 12.5 mg PO HS levETIRAcetam [Keppra] 500 mg PO BID diazePAM [Valium] 5 mg PO DIRECTED PRN PRN Reason: Anxiety Omeprazole [PriLOSEC] 40 mg PO DAILY Levothyroxine Sodium [Synthroid] 125 mcg PO DAILY #90 tab dilTIAZem HCL [Cardizem] 120 mg PO BID Piroxicam [Feldene] 20 mg PO DAILY Verapamil HCl [Verapamil Sr] 120 mg PO HS Acetaminophen [Tylenol Arthritis] 650 mg PO Q8H PRN PRN Reason: Pain Potassium Gluconate 99 mg PO MOWEFR Discharge Medication List hydroCHLOROthiazide 12.5 mg PO HS 03/10/20 [History] diazePAM [Valium] 5 mg PO DIRECTED PRN 05/07/20 [History] levETIRAcetam [Keppra] 500 mg PO BID 05/07/20 [History] Omeprazole [PriLOSEC] 40 mg PO DAILY 04/20/21 [History] Piroxicam [Feldene] 20 mg PO DAILY 04/20/21 [History] Levothyroxine Sodium [Synthroid] 125 mcg PO DAILY #90 tab 06/22/21 [Rx] Acetaminophen [Tylenol Arthritis] 650 mg PO Q8H PRN 06/17/24 [History] Potassium Gluconate 99 mg PO MOWEFR 06/17/24 [History] Verapamil HCl [Verapamil Sr] 120 mg PO HS 06/17/24 [History] dilTIAZem HCL [Cardizem] 120 mg PO BID 06/17/24 [History] Follow up Appointment(s)/Referral(s[facility] [place] [facility] - 07/16/24 2:30 pm Patient Instructions/Handouts: *Surgery [facility] - (Anesthesia) Discharge Instructions Outpatient Surgery, Diverticulosis (DC), Colonoscopy (DC) Discharge Disposition: HOME SELF-CARE
== END 2024-07-09 14:12 | disposition home or self-care (01) ==
LOC: ORWHC2ENDO 10:48
PROVIDERS: ATTEND Surgery Plastic and Reconstructive Surgery
DX: Z12.11 Encounter for screening for malignant neoplasm of colon (principal); K57.30 Diverticulosis of large intestine without perforation or abscess without bleeding; K64.1 Second degree hemorrhoids; K56.600 Partial intestinal obstruction, unspecified as to cause; K59.09 Other constipation; K21.9 Gastro-esophageal reflux disease without esophagitis; E78.5 Hyperlipidemia, unspecified; I10 Essential (primary) hypertension; G40.909 Epilepsy, unspecified, not intractable, without status epilepticus; G47.30 Sleep apnea, unspecified; E07.9 Disorder of thyroid, unspecified; M35.3 Polymyalgia rheumatica; Z79.899 Other long term (current) drug therapy; Z79.890 Hormone replacement therapy; Z88.8 Allergy status to other drugs, medicaments and biological substances; Z98.84 Bariatric surgery status; Z96.651 Presence of right artificial knee joint
CPT/HCPCS: J2704; G0121; 45378

== ENCOUNTER → 2024-07-16 | Outpatient (CLI) | payer MEDICARE, OTHER ==
[2024-07-16 15:51] VITALS: BP 142/82; PULSE 57; RESP 16; TEMP 98.6; BMI 48.4
--- NOTE | 2024-07-16 16:18 | P.BASOAP ---
Subjective Progress Note Date: 07/16/24 She has severe diverticulosis. Needs colectomy. CT reviewed from 2019. She is going to [place]. Objective - Vital Signs Vital signs: Vital Signs Temp 98.6 F 07/16/24 15:42 Pulse 57 L 07/16/24 15:42 Resp 16 07/16/24 15:42 BP 142/82 07/16/24 15:42 Pulse Ox FiO2 Intake & Output 07/15/24 07/16/24 07/16/24 18:59 06:59 18:59 Weight 131.995 kg Assessment/Plan Plan: Date: 07/16/24 Initial Weight: 151.953 kg Initial BMI: 55.7 Current Weight: 131.995 kg Current BMI: 48.4 Type of Surgery: Total Volume in Band: Previous Volume: Volume Removed: Volume Added: Band Size:
== END ==
LOC: BARWHC3 14:25
PROVIDERS: ATTEND Surgery Plastic and Reconstructive Surgery
DX: E66.01 Morbid (severe) obesity due to excess calories (principal); K57.90 Diverticulosis of intestine, part unspecified, without perforation or abscess without bleeding; Z68.42 Body mass index [BMI] 45.0-49.9, adult; Z88.2 Allergy status to sulfonamides; Z88.8 Allergy status to other drugs, medicaments and biological substances
CPT/HCPCS: 99211

== ENCOUNTER → 2024-08-05 | Outpatient (CLI) | payer MEDICARE, OTHER ==
--- NOTE | 2024-08-06 11:23 | MM ---
Reason for Exam: Screening (asymptomatic). Last screening mammogram was performed 12 month(s) ago. Patient History: Menarche at age 8. First Full-Term at age 21. Left ovary removed at age 51. Right ovary removed at age 51. Hysterectomy at age 26. Postmenopausal. Estrogen for 4 years, 4 months. Maternal cousin had breast cancer. Niece had breast cancer. Maternal cousin had breast cancer. Niece had breast cancer. Risk Values: Katarzyna 5 year model risk: 1.7%. NCI Lifetime model risk: 4.0%. Prior Study Comparison: 06/18/2020 Bilateral Screening Mammogram, [facility]. 05/30/2022 Bilateral MG 3D screening mammo w/cad, [facility]. 07/31/2023 Bilateral MG 3D screening mammo w/cad, [facility]. Tissue Density: The breasts are almost entirely fatty. Findings: Analyzed By CAD. Chronic nodularity on both sides. There is no suspicious group of microcalcifications or new suspicious mass in either breast. Overall Assessment: Benign, BI-RAD 2 Management: Screening Mammogram of both breasts in 1 year. . Patient should continue monthly self-breast exams. A clinical breast exam by your physician is recommended on an annual basis. This exam should not preclude additional follow-up of suspicious palpable abnormalities. Note on Katarzyna scores and lifetime risk: 1. A Katarzyna score greater than 3% is considered moderate risk. If this is the case, consider specialist referral to assess eligibility for a risk reducing agent. 2. If overall lifetime risk for the development of breast cancer is 20% or higher, the patient may qualify for future screening with alternating mammogram and breast MRI. [facility], , 08/06/2024 11:21 AM. Electronically signed and approved by: Rina Fajardo M.D. Radiologist
== END | disposition home or self-care (01) ==
LOC: RADMAMWWP 09:26
PROVIDERS: ATTEND Internal Medicine
CPT/HCPCS: 77063; 77067